=== PATIENT | male | born 1955 | race Caucasian/White ===

== ENCOUNTER 2020-04-24 10:42 | Inpatient (IN) | payer OTHER, SELFPAY ==
[2020-04-24] VITALS (24 sets, daily range): BP systolic 85–133; BP diastolic 41–75; PULSE 77–107; RESP 10–25; TEMP 36.6–37.1; O2SAT 93–100; BMI 25.5; BMI 23.6
--- NOTE | 2020-04-24 11:00 | EKG12_ITS ---
Test Reason : GENERAL ILLNESS Blood Pressure : / mmHG Vent. Rate : 091 BPM Atrial Rate : 091 BPM P-R Int : 132 ms QRS Dur : 086 ms QT Int : 432 ms P-R-T Axes : 035 019 084 degrees QTc Int : 531 ms Sinus rhythm with Premature atrial complexes Possible Inferior infarct , age undetermined Prolonged QT Abnormal ECG Confirmed by ELIZABETH JEFFERSON, RACHEL ([id number]), purchase request editor CHANEL REID ([id number]) on 04/26/2020 10:31:25 AM Referred By: MICHEAL Confirmed By:RACHEL JOHNSON MD
--- NOTE | 2020-04-24 11:01 | CT_ITS ---
STUDY: CT ABDOMEN AND PELVIS WITH CONTRAST REASON FOR EXAM: Male, 64 years old. Vomiting/ RADIATION DOSAGE (If Supplied By Facility): CTDIvol = ( 15.46 ) mGy, DLP = ( 1148.90 ) mGycm TECHNIQUE: Transaxial images were obtained from the dome of the diaphragm to the symphysis pubis without oral contrast. IV 100mL Isovue-370 was administered. Sagittal and coronal images were reconstructed. Individualized dose optimization techniques were used for this CT. COMPARISON: None. FINDINGS: The visualized lung bases are unremarkable. There are coronary calcifications. Normal liver. Normal gallbladder and extrahepatic biliary system. Normal spleen. Normal pancreas. Normal bilateral adrenal glands. Normal right kidney. Normal left kidney. The stomach is full of food contents. Normal small intestine. There is moderate stool in the colon from the cecum to the rectum. The appendix is visualized and appears normal. There is diffuse atherosclerotic calcification of the abdominal aorta, without a demonstrated aneurysm. Normal inferior vena cava. Normal retroperitoneum. Normal urinary bladder. Normal visualized prostate gland. There is a small left-sided fatty one hernia. There are diffuse degenerative changes of the visualized lumbar spine. CT/Abdomen/Pelvis WITH Contrast IMPRESSION: Fluid-filled fluid-filled appearance of the stomach. Mild to moderate constipation. No visualized obstruction. No appendicitis. [id number] atherosclerotic disease of the aorta. Fairly dense coronary calcification. Electronically Signed: aNdege Tam MD at 12:36 EST Tel , Service support ,
--- NOTE | 2020-04-24 11:01 | RAD_ITS ---
STUDY: X-RAY - RIGHT SHOULDER REASON FOR EXAM: Male, 64 years old. Injury/Pain TECHNIQUE: 2 view(s) of the shoulder. COMPARISON: None. FINDINGS: Normal glenohumeral articulation. There is degenerative arthrosis of the acromioclavicular joint without inferior osseous spur formation. Normal acromion. There is an acute impacted fracture of the right proximal humerus. The soft tissue structures are unremarkable. Normal visualized pulmonary apex. RAD/Shoulder min 2 Views IMPRESSION: Acute displaced partially visualized fracture of the right proximal humerus. Recommend consideration for dedicated right humerus study. Electronically Signed: Nadege Tam MD at 11:55 EST Tel , Service support ,
--- NOTE | 2020-04-24 11:01 | CT_ITS ---
STUDY: CT BRAIN WITHOUT CONTRAST REASON FOR EXAM: Male, 64 years old. Injury/Pain RADIATION DOSAGE (If Supplied By Facility): CTDIvol = ( 44.99 ) mGy, DLP = ( 863.60 ) mGycm TECHNIQUE: Transaxial CT imaging of the brain was performed without administration of intravenous contrast material. Individualized dose optimization techniques were used for this CT. COMPARISON: No relevant priors. FINDINGS: Normal soft tissue structures. Normal calvarium. There is mild cerebral atrophy with widening of the extra-axial spaces and ventricular dilatation. There are areas of decreased attenuation within the white matter tracts of the supratentorial brain, consistent with microvascular disease changes. Normal basal ganglia and thalami. Normal brainstem. There is mild cerebellar atrophy. There is no intracranial hemorrhage. There are no findings of an acute ischemic infarction. Normal visualized paranasal sinuses. CT/Brain/Head without Contrast IMPRESSION: Mild atrophy no visualized acute hemorrhage infarct or edema. Electronically Signed: Nadege Tam MD at 12:14 EST Tel , Service support ,
[2020-04-24] MEDS: 0.9% Normal Saline 1,000 ML 999 ML IV ×2 (11:04→14:18)
[2020-04-24 11:14] LABS: Absolute Lymphocyte Count 1.12 X10^3/uL (0.83-4.51); Absolute Neutrophil Count 12.8 X10^3/uL (2.0-7.7); Basophil# 0.02 X10^3/uL; Basophil% 0.1 % (0-1); Eosinophil# 0.02 X10^3/uL; Eosinophils% 0.1 % (0-5); Hemoglobin 8.3 g/dL (13.0-16.5); Lymphocyte # 1.12 X10^3/ul (4.0); Lymphocyte % 7.5 % (19-41); Mean Corp Hgb Conc 31.9 g/dL (32-36); Mean Corpuscular Hgb 28.8 pg (27.0-32.0); Mean Corpuscular Volume 90.3 fL (80-94); Mean Platelet Vol. 10.9 fl (6.2-12.0); Monocyte# 0.64 X10^3/uL; Monocyte% 4.3 % (0-10); NRBC Flagged by Analyzer 0 % (0-5); Neutrophil # 12.82 X10^3/uL (2.7-7.7); Neutrophil % 86.1 % (47-70); Platelet Count 351 K/mm3 (150-450); RBC Distribution Width CV 13.2 % (11.6-14.6); RBC Distribution Width SD 43.1 fl (35.1-43.9); Red Blood Count 2.88 M/mm3 (4.6-6.2); White Blood Count 14.9 K/mm3 (4.4-11.0)
[2020-04-24 11:21] LABS: International Normalized Ratio 1.1; Partial Thromboplast Time 25.2 Seconds (24.1-36.2); Prothrombin Time (Protime)PT. 13.8 SECONDS (11.7-14.9)
[2020-04-24 11:28] LABS: ALB/GLOB Ratio 0.6 RATIO (0.9-2.4); AST(SGOT) 13 U/L (15-37); Alanine Aminotransfer ALT/SGPT 17 U/L (16-61); Albumin, Serum 1.9 g/dL (3.2-5.0); Alkaline Phosphatase 79 U/L (45-117); Anion Gap 9 (5-15); BUN 43 mg/dL (7-18); BUN/Creat Ratio 38.7 RATIO (10-20); CPK Total, Creatine Kinase 32 U/L (39-308); Calcium,Total 7.3 mg/dL (8.5-10.1); Chloride 89 mmol/L (98-107); Creatinine, Serum 1.11 mg/dL (0.70-1.30); EST Glomerular Filtration Rate 71 mL/min (>60); Est Glom Filt Rate - Afr Amer 86 mL/min (>60); Estimated Creatinine Clearance 66.76 ml/min; Globulin 3.2 g/dL (2.2-4.2); Glucose 524 mg/dL (74-106); Potassium 3.4 mmol/L (3.5-5.1); Protein, Total 5.1 g/dL (6.4-8.2); Sodium Level 131 mmol/L (136-145)
[2020-04-24 11:36] LABS: Lactic Acid 3.7 mmol/L (0.4-1.9)
--- NOTE | 2020-04-24 11:37 | RAD_ITS ---
STUDY: X-RAY CHEST REASON FOR EXAM: Male, 64 years old. Syncope TECHNIQUE: Single AP portable view of the chest. COMPARISON: None. FINDINGS: The lungs are clear and expanded. There is no demonstrated pleural abnormality. Normal size heart. Normal mediastinum and deepak. Normal visualized pulmonary arteries. There is atherosclerotic calcification of the aortic arch with tortuosity. There are diffuse degenerative changes of the visualized thoracic spine. Normal visualized ribs, clavicles, and shoulders. There is no demonstrated abnormality of the visualized soft tissue structures of the upper abdomen. RAD/Chest 1 View (Portable) IMPRESSION: Degenerative changes, as described above. No demonstrated acute cardiopulmonary process. Electronically Signed: Nadege Tam MD at 12:15 EST Tel , Service support ,
--- NOTE | 2020-04-24 12:29 | ED.VIS.GEN ---
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 Patient had nausea and vomiting and been sick for the past few weeks. He has had very little oral intake. On Saturday, 2 days ago patient fell. He states that his ankle gave out but son is suspicious that he might have a syncopal episode. Says been try to get him to drink Pedialyte which he is done a little bit of. Patient another fall yesterday however the son had gotten him a walker and he was walking around actually seem to be doing better. Today patient had multiple episodes of syncope. He seemed to fall and injure his right arm as well and has a lot of bruising. EMS was called because of the patient's syncope and per EMS his initial systolic blood pressure was 100 however on repeat when they got up to the cot he was 60/40. Patient was given a liter of fluids prior to arrival. Patient does live with his 2 sons. Patient currently denies any complaints or any pain. Denies any black or bloody stools. States has been having normal bowel movements. Denies any black or blood in his vomit. He is not on any blood thinners. Past Medical History - Allergies and Home Meds Allergies/Adverse Reactions: Allergies No Known Allergies Allergy (Verified 04/24/20 10:44) Past Medical History: - - Hypertension, hyperlipidemia, diabetes mellitus Surgical History: no surgical history Lives: With Family Smoking Status: Current every day smoker - Family History Maternal Family History: Reports: Heart Disease Paternal Family History: Reports: No pertinent history Review of Systems General: Reports: Malaise, - - Syncope. Denies: Chills, Fever, Sweats Eyes: Denies: Visual changes - bilaterally, Diplopia ENT: Denies: Rhinorrhea, Sore throat Cardiovascular: Denies: Chest pain, Palpitations Respiratory: Denies: Dyspnea, Cough, Dyspnea on exertion Gastrointestinal: Reports: Nausea, Vomiting. Denies: Abdominal pain, Diarrhea, Melena, Hematochezia Genitourinary: Denies: Dysuria, Hematuria, Frequency Musculoskeletal: Denies: Back pain, Extremity Pain Skin: Denies: Rash, Wounds Neurological: Reports: Weakness - Generalized. Denies: Headache, Numbness Physical Exam Vital Signs/Narrative: Vital Signs Temp Pulse Resp BP Pulse Ox 04/24/20 12:00 97.9 F 93 18 94/46 L 97 04/24/20 11:59 97.9 F 94 20 H 94/50 L 97 04/24/20 11:58 93 18 94/50 L 100 04/24/20 11:00 98.1 F 92 16 98/41 L 95 04/24/20 10:57 98.0 F 94 10 L 85/47 L 100 04/24/20 10:44 98.0 F 94 16 85/47 L 98 Inital Vital Signs reviewed: Yes General: Well nourished, Well developed, No Acute Distress Head: Normocephalic, Atraumatic Eyes: Perrl, EOMI ENT: No rhinorrhea, Dry mucous membranes Neck: Supple, Nontender, No JVD Cardiovascular: Regular rate, Regular rhythm, No murmurs Respiratory: No distress, CTA bilaterally, Chest nontender Abdomen: Soft, Nontender, Nondistended, Normal bowel sounds. Negative for: Guarding, Rebound tenderness Rectal: Deferred, Guaiac negative Back: Nontender, Normal Inspection Extremities: No edema, Tenderness - Right upper arm Skin: Normal color, No rash, Trauma - Ecchymosis of the right upper arm/shoulder area Neurological: Alert, Oriented x3, Cranial nerves II-XII grossly intact, Normal Strength, Normal Sensation Psychological: Normal affect, Normal Mood Diagnostic/Tx/Re-eval Chest X-Ray - ED: 1 View, Read by ED Physician, Read by Radiologist, No Acute Disease Clinical Impression(s) from Imaging Studies Abdomen/Pelvis CT 04/24/20 11:01 IMPRESSION: Fluid-filled fluid-filled appearance of the stomach. Mild to moderate constipation. No visualized obstruction. No appendicitis. [id number] atherosclerotic disease of the aorta. Fairly dense coronary calcification. Electronically Signed: Nadege Tam MD at 12:36 EST Tel , Service support , Brain CT 04/24/20 11:01 IMPRESSION: Mild atrophy no visualized acute hemorrhage infarct or edema. Electronically Signed: Nadege Tam MD at 12:14 EST Tel , Service support , Shoulder X-Ray 04/24/20 11:01 IMPRESSION: Acute displaced partially visualized fracture of the right proximal humerus. Recommend consideration for dedicated right humerus study. Electronically Signed: Nadege Tam MD at 11:55 EST Tel , Service support , Chest X-Ray 04/24/20 11:37 IMPRESSION: Degenerative changes, as described above. No demonstrated acute cardiopulmonary process. Electronically Signed: Nadege Tam MD at 12:15 EST Tel , Service support , Laboratory Data 04/24/20 04/24/20 04/24/20 10:50 10:50 10:50 WBC 14.9 H RBC 2.88 L Hgb 8.3 L Hct 26.0 L MCV 90.3 MCH 28.8 MCHC 31.9 L RDW Std Deviation 43.1 RDW Coeff of Concetta 13.2 Plt Count 351 MPV 10.9 Immature Gran % (Auto) 1.900 H Neut % (Auto) 86.1 H Lymph % (Auto) 7.5 L Randall % (Auto) 4.3 Eos % (Auto) 0.1 Baso % (Auto) 0.1 Absolute Neuts (auto) 12.8 H Absolute Lymphs (auto) 1.12 Nucleated RBC % 0 PT 13.8 INR 1.1 APTT 25.2 Sodium 131 L Potassium 3.4 L Chloride 89 L Carbon Dioxide 33.0 H Anion Gap 9 BUN 43 H Creatinine 1.11 Estim Creat Clear Calc 66.76 Est GFR (MDRD) Af Amer 86 Est GFR (MDRD) Non-Af 71 BUN/Creatinine Ratio 38.7 H Glucose 524 H* Lactic Acid Calcium 7.3 L Total Bilirubin 0.30 AST 13 L ALT 17 Alkaline Phosphatase 79 Total Creatine Kinase 32 L Total Protein 5.1 L Albumin 1.9 L Globulin 3.2 Albumin/Globulin Ratio 0.6 L Urine Color Urine Clarity Urine pH Ur Specific [place] Urine Protein Urine Glucose (UA) Urine Ketones Urine Occult Blood Urine Nitrite Urine Bilirubin Urine Urobilinogen Ur Leukocyte Esterase Urine RBC Urine WBC Ur Squamous Epith Cells Urine Bacteria Urine Mucus 04/24/20 04/24/20 10:50 13:00 WBC RBC Hgb Hct MCV MCH MCHC RDW Std Deviation RDW Coeff of [place] Plt Count MPV Immature Gran % (Auto) Neut % (Auto) Lymph % (Auto) Randall % (Auto) Eos % (Auto) Baso % (Auto) Absolute Neuts (auto) Absolute Lymphs (auto) Nucleated RBC % PT INR APTT Sodium Potassium Chloride Carbon Dioxide Anion Gap BUN Creatinine Estim Creat Clear Calc Est GFR (MDRD) Af Amer Est GFR (MDRD) Non-Af BUN/Creatinine Ratio Glucose Lactic Acid 3.7 H* Calcium Total Bilirubin AST ALT Alkaline Phosphatase Total Creatine Kinase Total Protein Albumin Globulin Albumin/Globulin Ratio Urine Color Yellow Urine Clarity Clear Urine pH 5.0 Ur Specific [place] 1.005 Urine Protein Negative Urine Glucose (UA) 1000 H Urine Ketones 5 H Urine Occult Blood 10 H Urine Nitrite Negative Urine Bilirubin Negative Urine Urobilinogen Normal Ur Leukocyte Esterase Negative Urine RBC 0-5 SEEN Urine WBC 0 SEEN Ur Squamous Epith Cells 0-5 SEEN Urine Bacteria 0 SEEN Urine Mucus 0 SEEN - Rhythm Strip Rhythm Strip: Sinus Rhythm Rate: 91 Ectopy: None - EKG Initial EKG Interpretation: Sinus Rhythm, - - Normal sinus rhythm at a rate of [address] segments QTC prolonged at 531 Nonspecific T wave inversion in lead III Prior: No Prior - Medical Decision Making Patient evaluated for hypotension, syncopal episodes and weeks of being sick with nausea and vomiting. Patient appears significantly dehydrated and slightly pale on exam. His blood pressure is fluid responsive. Patient is given 1 L of normal saline in route per EMS and then a second liter immediately in the emergency room. There is no mention of any fevers or any other infectious symptoms. At this time I suspect his hypotension is related to his acute dehydration, however cardiac and infectious work-up is performed.CBC is remarkable for leukocytosis of 14.9. His hemoglobin is 8.3. Normal platelets. Sodium is 131 and potassium is 3.4. His CO2 is 33. Patient has a normal anion gap. His creatinine is normal at 1.11. Patient has a elevated glucose of 524. His total CK is normal at 32. His lactate is elevated at 3.7. His urinalysis does not show any signs of infection but does show 5 ketones and 1,000 glucose. Chest x-ray does not show any acute process. CT of the brain obtained given his weakness and multiple falls. This did not show any acute process. X-ray of the right shoulder shows acutely displaced right proximal humerus. Stool occult is sent which is negative for blood. That cause of anemia and leukocytosis is not clear. I am no obvious source of acute infection. I did cover empirically with a dose of Zosyn however again, I suspect his abnormalities are more metabolic. Patient CT the abdomen pelvis obtained which does not show a any acute process to explain his presentation. Patient does have mild to moderate constipation but no signs of obstruction. Patient is given a third L of fluid in the ER as well as a 30 cc/kg fluid bolus. At this time I think patient requires more fluids and does not need pressors. Patient admitted to the ICU for further treatment and monitoring. Patient and family agreeable with the plan. I did discuss jacey the case with the hospitalist as well as orthopedics. Orthopedics request a sling for his arm and will see him in the unit. At this time there is no acute surgical intervention required. Patient is hyperglycemic he has a normal anion gap. I have a lower suspicion for DKA and I would suspect him to have a higher glucose for HHS. - Critical Care Time Critical care time (excluding procedures): 30-74 minutes - 45 minutes for threatening hypotension requiring frequent evaluation and multiple boluses of fluid. 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
[2020-04-24 13:04] LABS: Bacteria 0 SEEN /hpf (None Seen); Mucous, Urine 0 SEEN /hpf (<or=2+); White Blood Cells 0 SEEN /hpf (0-5)
--- NOTE | 2020-04-24 13:20 | HP.PCM_ITS ---
History of Present Illness Date of Admission: 04/24/20 Chief Complaint: weakness, syncope, mechanical fall The patient is a 64 year old M with a past medical history as outlined which includes type 2 diabetes mellitus, hypertension and hyperlipidemia. He was admitted through the ED on 04/24/2020 with a complaint of syncope and mechanical falls. Patient states has not been doing well for the past few days. Has not been eating or drinking well and has been having some nausea and vomiting. He is also not been taking his diabetes medications because he is not been feeling well. Son states he fell a few days ago and landed on his right and has been complaining of right arm pain since then. According to the son who was present, patient passed out 3 times on the day of admission. Patient denied any fever, chills, palpitations or dizziness, any urinary symptoms, any abdominal pain but admitted to nausea and vomiting but no diarrhea. Review of stems otherwise negative. Son says his father has actually been sick for longer and does not take care of himself well and does not listen to anybody so has been refusing to come in to get health care. In the ED, patient was hypotensive initially with blood pressure of 85/47. Patient was 98 and pulse rate was 94 with respiratory rate of 20. He was saturating 97% on 2 L of oxygen. Chemistry showed sodium of 131 with potassium of 3.4 and bicarb of 33. Creatinine was 1.11. Glucose was 524 and lactic acid was 3.7. Bicarb was 33. CBC showed hemoglobin of 8.3 with WBC of 14.9 and platelets of 351. It appears patient had also complained of dark stools. T of the abdomen and pelvis showed fluid-filled appearance of the stomach with mild to moderate constipation but no visualized obstruction and no appendicitis with mild to moderate atherosclerotic disease of the aorta and fairly dense coronary calcification. CT of the brain showed mild atrophy and no visualized acute hemorrhage, infarct or edema. Chest x-ray showed no acute cardiopulmonary process and shoulder x-ray showed acute displaced partially visualized fracture of the right proximal humerus. No evidence of UTI. Patient has been admitted to be managed for shock which responded to IV fluids and is likely hypovolemic from dehydration and probably septic as well. Please also be managed for syncope and debility due to mechanical falls as well as right proximal humeral fracture and hypoglycemia due to noncompliance with this medication. Past Medical History Past Medical History (Chronic Problems): Chronic Problems Type 2 diabetes mellitus (Chronic) Hypertension (Chronic) Allergies No Known Allergies Allergy (Verified 04/24/20 10:44) Home Medications: Ambulatory Orders Medication Instructions Recorded Benazepril HCl 10 mg PO DAILY 04/24/20 Glimepiride [Amaryl] 2 mg PO DAILY 04/24/20 Metformin HCl [Glucophage Xr] 500 mg PO BID 04/24/20 Surgical History: no surgical history Psychiatric History: No pertinent psych hx Lives: With Family Smoking Status: Heavy Smoker (>10/day) - smokes 3 packs of cigarettes daily Tobacco Use: Cigarettes Alcohol: None Drugs: None - *Family History Maternal History Items: Heart Disease Paternal History Items: No pertinent history Review of Systems Constitutional: Reports: Anorexia, Malaise, Weakness, Fatigue. Denies: Chills, Fever, Night Sweats Eyes: Denies: Blurred vision HEENT: Denies: Head Aches, Sinus Congestion, Sinus Drainage Cardiovascular: Reports: Syncope. Denies: Chest Pain, Heaviness, Light Headedness, Orthopnea, Palpitations, Paroxysmal Noc. Dyspnea Respiratory: Denies: Cough, Shortness of Breath, Shortness of breath at rest, Shortness of breath upon exertion, Sputum production Gastrointestinal: Denies: Abdominal Pain, Nausea, Vomiting Genitourinary: Denies: Dysuria Musculoskeletal: Denies: Joint Pain, Joint Tenderness Skin: Denies: Rash, Wounds Neurological: Denies: Numbness, Tingling, Focal weakness Psychiatric: Denies: Anxiety, Depression, Homicidal Ideations, Suicidal Ideations Hematologic/ Lymphatic: Denies: Easy Bruising, Easy Bleeding VTE Information - Inpt Only VTE Present on Admission: No VTE Pharm Prophylaxis ordered?: No Reason prophylaxis not ordered:: Medical Contraindication - anemia and melena stools Patient Problems: Active and Suspected Problems Hypotension (Acute) Lactic acidosis (Acute) Syncope and collapse (Acute) Closed fracture of right proximal humerus (Acute) Anemia (Acute) Hyperglycemia (Acute) - Physical Exam Vitals/I&O's: Vital Signs Temp Pulse Resp BP Pulse Ox 97.9 F 94 20 H 99/59 L 100 04/24/20 12:00 04/24/20 12:29 04/24/20 12:29 04/24/20 12:29 02/28/21 12:29 Oxygen Flow Rate (L/min) 2 Oxygen Delivery Method Nasal Cannula Weight: 167 lb 15.876 oz Body Mass Index (BMI) 25.5 General: Alert, Cooperative, No apparent distress, Lethargic HEENT: Atraumatic, PERRLA, EOMI, Normocephalic Oral: Dry Mucosa Neck: Supple, No JVD, Negative Carotid Bruits Lungs: Clear to auscultation, Normal air movement, No rhonchi, No wheeze, No rales Cardiovascular: Regular rate, Regular Rhythm, Normal S1, Normal S2, No murmurs Abdomen: Bowel Sounds Present, Soft, Non Tender, Non-Distended, No Hepato- splenomegaly Extremities: No clubbing, No cyanosis, No edema, Capillary Refill Less than 3 Seconds Skin: No rashes, No breakdown Musculoskeletal: No Tenderness to Palpation of Joints or Extremities Lymphatic: No Cervical, Supraclavicular, or Inguinal Adenopathy Neurological: Cranial nerves II-XII grossly intact, Neuro grossly intact, Motor Exam 5/5 strength throughout Psych/Mental Status: Normal Affect, Appropriate, Alert and oriented to time, place, person, mood and affect Laboratory Results 04/24/20 10:50: WBC 14.9 H, RBC 2.88 L, Hgb 8.3 L, Hct 26.0 L, MCV 90.3, MCH 28.8, MCHC 31.9 L, RDW Std Deviation 43.1, RDW Coeff of [place] 13.2, Plt Count 351, MPV 10.9, Immature Gran % (Auto) 1.900 H, Neut % (Auto) 86.1 H, Lymph % (Auto) 7.5 L, [place] % (Auto) 4.3, Eos % (Auto) 0.1, Baso % (Auto) 0.1, Absolute Neuts (auto) 12.8 H, Absolute Lymphs (auto) 1.12, Nucleated RBC % 0 04/24/20 10:50: PT 13.8, INR 1.1, APTT 25.2 04/24/20 10:50: Sodium 131 L, Potassium 3.4 L, Chloride 89 L, Carbon Dioxide 33.0 H, Anion Gap 9, BUN 43 H, Creatinine 1.11, Estim Creat Clear Calc 66.76, Est GFR (MDRD) Af Amer 86, Est GFR (MDRD) Non-Af 71, BUN/Creatinine Ratio 38.7 H , Glucose 524 H*, Calcium 7.3 L, Total Bilirubin 0.30, AST 13 L, ALT 17, Alkaline Phosphatase 79, Total Creatine Kinase 32 L, Total Protein 5.1 L, Albumin 1.9 L, Globulin 3.2, Albumin/Globulin Ratio 0.6 L 04/24/20 10:50: Lactic Acid 3.7 H* 04/24/20 13:00: Urine Color Pending, Urine Clarity Pending, Urine pH Pending, Ur Specific [place] Pending, Urine Protein Pending, Urine Glucose (UA) Pending, Urine Ketones Pending, Urine Occult Blood Pending, Urine Nitrite Pending, Urine Bilirubin Pending, Urine Urobilinogen Pending, Ur Leukocyte Esterase Pending, Urine RBC Pending, Urine WBC Pending, Ur Squamous Epith Cells Pending, Urine Bacteria Pending, Urine Mucus Pending Diagnostic Data Abdomen/Pelvis CT 04/24/20 11:01 IMPRESSION: Fluid-filled fluid-filled appearance of the stomach. Mild to moderate constipation. No visualized obstruction. No appendicitis. [id number] atherosclerotic disease of the aorta. Fairly dense coronary calcification. Electronically Signed: Nadege Tam MD at 12:36 EST Tel , Service support , Brain CT 04/24/20 11:01 IMPRESSION: Mild atrophy no visualized acute hemorrhage infarct or edema. Electronically Signed: Nadege Tam MD at 12:14 EST Tel , Service support , Shoulder X-Ray 04/24/20 11:01 IMPRESSION: Acute displaced partially visualized fracture of the right proximal humerus. Recommend consideration for dedicated right humerus study. Electronically Signed: Nadege Tam MD at 11:55 EST Tel , Service support , Chest X-Ray 04/24/20 11:37 IMPRESSION: Degenerative changes, as described above. No demonstrated acute cardiopulmonary process. Electronically Signed: Nadege Tam MD at 12:15 EST Tel , Service support , Current Medications Piperacillin Sod/Tazobactam (Sod 3.375 gm/ Sodium Chloride) 50 mls @ 100 mls/hr IV X1 ONE Stop: 04/24/20 13:27 Assessment/Plan All Active Problems Hypotension (Acute) Lactic acidosis (Acute) Syncope and collapse (Acute) Closed fracture of right proximal humerus (Acute) Anemia (Acute) Hyperglycemia (Acute) 64 y/o admitted with a complaint of syncope, weakness and pain in RUE #Shock, likely hypovolemic * Patient's blood pressure was not in the 80s systolic but this responded to aggressive fluid hydration. Blood pressure came up to the 90s systolic. * Patient is very dry he has not been eating or drinking well and has been vomiting. * Continue hydrating with IV fluid at 150 cc/h. * Maintain MAP more than 65%. Start vasopressors if MAP less than 65%. * #Hyperglycemia * Patient does not have an elevated anion gap with bicarb of 83. Anion gap is 9. * Patient could possibly have HHS considering his elevated sugar 524. No previous A1c in the records. * Will check A1c. * Hydrate aggressively with IV fluids. Check serum osmolality. * Insulin drip ordered, but when patient got to the floor, blood sugar was down ot the 200s. A1C came back at >9, so patient started on insulin 10IU daily. * Accuchecks ACHS. High dose sliding scale. * * #Poorly controlled type 2 diabetes mellitus: As above. Hold Metformin and glipizide. Management as above. #Lactic acidosis: Likely due to dehydration and shock. Will trend.. Improved with IV fluid. #Leucocytosis * Patient has WBC of 14.9. * There is no clear focus of infection. * Urinalysis is negative and CT of the abdomen and pelvis was also negative for any focus of infection. * And covered empirically with IV Zosyn in the ED. * We will continue IV Zosyn for now. Get blood cultures. * #Right proximal humeral fracture * Due to mechanical fall. Shoulder x-ray showed the right proximal humeral fracture. * Will consult orthopedic surgery. Management is likely to be conservative. * PT OT consult. Fall precautions. * #Syncope * likely due to hypotension. * PT OT on board. Fall precautions. Check orthostatics. ] #Hypertension: Hold lisinopril on account of hypotension #Anemia: * hb is 8.3. patient apparently told ED doctor he was having dark stools. * Will check iron panel. * Stool for occult blood check. * If is positive, saw general surgery. * #. Hyperlipidemia: Continue statin #Extensive nicotine dependence: Smokes 3 packs daily. Nicotine patch 21 mg daily. Counseled to quit. DVT prophylaxis: SCDs Code status: full code * Patient counseled extensively about different types of CODE STATUS including full code, DNR CCA and DNR CCA. Patient elects to be full code. * Total [id number] time 17 minutes. Inpatient E&M: 25093 Init Hosp L3 Procedures: 86658 Advncd Care Plan 30 Min
[2020-04-24 13:23] LABS: Color, Urine Yellow (Yellow); Glucose, Dipstick 1000 mg/dl (Normal); Ketone-Dipstick 5 mg/dl (Negative); Leukocyte Esterase-Dipstick Negative /ul (Negative); Nitrite-Dipstick Negative (Negative); Occult Blood-Urine 10 /ul (Negative); Protein-Dipstick Negative (Negative); Specific Gravity, Urine 1.005 (1.002-1.030); Urine Bilirubin Dipstick Negative (Negative); Urine Clarity Clear (Clear); Urine Urobilinogen Normal (Normal)
[2020-04-24 13:54] LABS: Red Blood Cells-Urine 0-5 SEEN /hpf (0-5); Squamous Epithelial Cells - UA 0-5 SEEN /hpf (0-5)
--- NOTE | 2020-04-24 14:15 | ED.RN ---
PT LAYING ON LEFT ARM. PT PLACED ON BACK, REPEAT BP 92/53. DR. LOPEZ INFORMED OF LOW BP POST FLUID ADMINISTRATION. PER DR. LOPEZ, PT IS DEHYDRATED AND NO SOURCE OF INFECTION NOTED. 3RD LITER BOLUS ORDERED FOR PT AND INITIATED BY THIS RN. ICU NOTIFIED.
[2020-04-24 15:08] LABS: Reflex Lactate? Y
[2020-04-24 15:14] LABS: Magnesium 1.9 mg/dL (1.6-2.6)
[2020-04-24 15:28] LABS: Ferritin 398 ng/mL (26-388); Iron 62 ug/dL (65-175); Iron Binding Capacity,Total 146 ug/dL (250-450); PERCENT IRON SATURATION 42.5 % (15.0-55.0)
[2020-04-24 15:37] LABS: Hemoglobin A1c 9.7 % (3.8-5.6)
[2020-04-24 15:52] LABS: Osmolality, Serum 310 mOsm/KG (280-301)
[2020-04-24 16:15] LABS: Bedside Glucose 263 mg/dL (70-110)
[2020-04-24] MEDS: Potassium Chloride 40 MEQ in 0.9% Normal Saline 1,000 ML 200 MEQ IV (16:36)
[2020-04-24] MEDS: Insulin Lispro 100 UNIT/ML INSULN.PEN SC ×2 (17:52→21:20)
[2020-04-24] MEDS: 0.9% Saline Lock 10 ML Syringe IV (21:14)
[2020-04-24 21:31] LABS: Bedside Glucose 170 mg/dL (70-110)
[2020-04-24] MEDS: Potassium Chloride 40 MEQ in 0.9% Normal Saline 1,000 ML 150 MEQ IV (22:47)
[2020-04-25] VITALS (24 sets, daily range): BP systolic 96–142; BP diastolic 31–96; PULSE 84–98; RESP 12–26; TEMP 36.6–37.3; O2SAT 94–100
[2020-04-25] MEDS: 0.9% Saline Lock 10 ML Syringe IV (00:39)
[2020-04-25 03:35] LABS: Basophil# 0.02 X10^3/uL; Basophil% 0.2 % (0-1); Eosinophil# 0.12 X10^3/uL; Hematocrit 21.3 % (40-54); Hemoglobin 6.9 g/dL (13.0-16.5); Lymphocyte % 19.4 % (19-41); Mean Corp Hgb Conc 32.4 g/dL (32-36); Mean Corpuscular Hgb 28.6 pg (27.0-32.0); Mean Corpuscular Volume 88.4 fL (80-94); Mean Platelet Vol. 10.4 fl (6.2-12.0); Monocyte# 0.71 X10^3/uL; Monocyte% 5.7 % (0-10); NRBC Flagged by Analyzer 0 % (0-5); Neutrophil # 8.99 X10^3/uL (2.7-7.7); Neutrophil % 72.6 % (47-70); Platelet Count 322 K/mm3 (150-450); RBC Distribution Width CV 13.3 % (11.6-14.6); RBC Distribution Width SD 42.7 fl (35.1-43.9); Red Blood Count 2.41 M/mm3 (4.6-6.2); White Blood Count 12.4 K/mm3 (4.4-11.0)
[2020-04-25 03:48] LABS: Anion Gap 7 (5-15); BUN 27 mg/dL (7-18); BUN/Creat Ratio 56.5 RATIO (10-20); Calcium,Total 7.1 mg/dL (8.5-10.1); Chloride 108 mmol/L (98-107); Creatinine, Serum 0.48 mg/dL (0.70-1.30); EST Glomerular Filtration Rate 188 mL/min (>60); Est Glom Filt Rate - Afr Amer 228 mL/min (>60); Estimated Creatinine Clearance 169.95 ml/min; Glucose 128 mg/dL (74-106); Potassium 3.2 mmol/L (3.5-5.1); Sodium Level 143 mmol/L (136-145)
[2020-04-25] MEDS: Potassium Chloride 40 MEQ in 0.9% Normal Saline 1,000 ML 150 MEQ IV (05:20)
--- NOTE | 2020-04-25 05:55 | ECHOCS_ITS ---
Reason For Study: HTN Procedure This was a 2D Doppler, Color Flow transthoracic echocardiogram. The study was technically difficult. Patient scanned slightly elevated and supine due to right shoulder fracture. Contrast injection performed. Exam performed portable in ICU/CCU. Left Ventricle Normal LV size. Left ventricular systolic function is normal. The estimated ejection fraction is 65 %. Stage 1 diastolic dysfunction. No regional wall motion abnormalities noted. Right Ventricle Normal RV size. Normal systolic function. Atria Normal left atrium. Normal right atrium. Mitral Valve Normal mitral valve. Tricuspid Valve The tricuspid valve is not well visualized. Aortic Valve The aortic valve is not well visualized. Pulmonic Valve Normal pulmonic valve. Great Vessels Normal aortic root. The pulmonary artery is normal size. Normal inferior vena cava. Pericardium/Pleural No pericardial effusion. Medication Diluted definity 3ml given slow IV push to enhance endocardial definition. MMode/2D Measurements & Calculations LVIDd: 4.5 cm IVSd: 1.3 cm LA dimension: 3.3 cm LVIDs: 3.2 cm LVPWd: 1.0 cm FS: 29.7 % LAV(MOD-bp): 51.5 ml LA A4 area: 18.8 cm2 RA A4 area: 19.9 cm2 LAV(MOD-bp) Indexed: 26.0 ml/m2 LAV(MOD-sp2): 51.4 ml LAV(MOD-sp4): 49.0 ml Time Measurements MV dec time: 0.26 sec Doppler Measurements & Calculations MV E max jax: 61.2 cm/sec Lat Peak E' Jax: 9.0 cm/sec Med Peak E' Jax: 5.7 cm/sec MV A max jax: 102.5 cm/sec E/E' lat: 6.8 E/E' med: 10.8 MV E/A: 0.60 MV V2 max: 127.1 cm/sec MV P1/2t max jax: 105.9 cm/sec Ao V2 max: 126.2 cm/sec MV max P.5 mmHg MV P1/2t: 76.3 msec Ao max P.4 mmHg MV V2 mean: 72.5 cm/sec MV dec slope: 406.5 cm/sec2 MV mean P.4 mmHg MV V2 VTI: 25.7 cm MVA(P1/2t): 2.9 cm2 LV V1 max: 97.7 cm/sec PA V2 max: 120.4 cm/sec LV V1 max P.8 mmHg Interpretation Summary Normal LV size. Left ventricular systolic function is normal. The estimated ejection fraction is 65 %. Stage 1 diastolic dysfunction. Contrast injection was performed. Ordering Physician: Jennifer Lechuga Referring Physician: Justus Foreman Performed By: Vadim Gregory RCS
--- NOTE | 2020-04-25 07:23 | PCM.CON.CC ---
Problem List (1) Hypotension Status: Acute Qualifiers: Hypotension type: orthostatic hypotension Qualified Code(s): I95.1 - Orthostatic hypotension (2) Dehydration Status: Acute (3) Lactic acidosis Status: Acute (4) Syncope and collapse Status: Acute (5) Closed fracture of right proximal humerus Status: Acute (6) Anemia Status: Acute (7) Hyperglycemia Status: Acute Reason for Consult Date of Consultation: 04/25/20 Reason for Consultation: Possible sepsis History of Present Illness: The patient is a 64 year old M, with past medical history listed below, who presented to [facility] on 10/22/2020 secondary to weakness and syncope. Patient reportedly has had nausea and vomiting for the past few weeks. Patient with very little oral intake. Patient reports that he fell approximately 2 weeks ago and injured his right arm. Patient reportedly fell again 2 days prior to presentation. Patient stated that his ankle gave out, but the son was reportedly concerned about a syncopal episode. Patient son had reportedly gotten him on a walker and thought that this was improving his ambulation. Patient has had multiple episodes of syncope with associated bruising. Upon EMS arrival, patient systolic blood pressure was 100, but on repeat he was noted to be 60/40. Patient was given a liter of IV fluids and transported to the ER for further evaluation. Patient had not reported any melena, hematochezia or hematemesis. Patient is not on any blood thinners at baseline. Patient does admit that he tends to avoid medical attention if possible. In the ER, patient was noted to have blood pressures of 80s over 40s and afebrile. Patient saturating well on room air. ER physician had noted dry mucous membranes and tenderness of the right upper arm. CT of the head showed no acute infarct or edema. CT of the abdomen and pelvis showed mild to moderate constipation with extensive calcifications. Shoulder x-ray showed an acute displaced partially visualized fracture of the right proximal humerus, but chest x-ray did not show any acute infiltrates. Laboratory work-up showed a leukocytosis of 14.9 with a hemoglobin of 8.3 and normal coagulation studies. Patient did have an elevated bicarbonate of 33, glucose of 524 and hyponatremia at 131. Liver function studies were relatively unremarkable, along with UA. Lactate was elevated at 3.7. EKG did show a prolonged QTC of 531, but otherwise sinus rhythm. Patient was given 30 cc/kg of IV fluids along with empiric Zosyn. Reportedly orthopedics was contacted, but there does not appear to be any documentation as to who was contacted. Since being in the intensive care unit, patient has remained hemodynamically stable. Patient did require minimal nasal cannula oxygen to maintain saturations with sleep. Patient has received over 6 L of IV fluids thus far. Patient did have a guaiac positive stool noted, but no obvious melena, hematochezia or hematemesis. Patient is unaware of any previous GI bleed issues. Patient does have an extensive smoking history, but has never been evaluated for COPD. Patient readily admits that he tends to avoid medical care if possible. Patient is not very forthcoming with the review of systems and states no to everything, including pain of the right arm. Review of systems otherwise negative from a constitutional, HEENT, respiratory, cardiovascular, GI, genitourinary, musculoskeletal, skin, neurologic, psychiatric and hematologic system unless stated above. Past Medical History Allergies No Known Allergies Allergy (Verified 04/24/20 10:44) Home Medications: Ambulatory Orders Medication Instructions Recorded Benazepril HCl 10 mg PO DAILY 04/24/20 Glimepiride [Amaryl] 2 mg PO DAILY 04/24/20 Metformin HCl [Glucophage Xr] 500 mg PO BID 04/24/20 Surgical History: no surgical history Psychiatric History: No pertinent psych hx Lives: With Family Smoking Status: Heavy Smoker (>10/day) Tobacco Use: Cigarettes Alcohol: None Drugs: None - *Family History Maternal History Items: Heart Disease Paternal History Items: No pertinent history Review of Systems Unable to obtain accurate/complete ROS d/t: See HPI. Patient resistant to questioning Patient Problems: Active and Suspected Problems Hypotension (Acute) Dehydration (Acute) Lactic acidosis (Acute) Syncope and collapse (Acute) Closed fracture of right proximal humerus (Acute) Anemia (Acute) Hyperglycemia (Acute) Objective: All imaging was personally reviewed. There does not appear to be any acute infiltrates on chest x-ray. Patient does not have any previous studies to review at [facility]. - Physical Exam Vitals/I&O's: Vital Signs Temp Pulse Resp BP Pulse Ox 36.8 C 87 22 H 116/57 L 99 04/25/20 04:00 04/25/20 07:00 04/25/20 07:00 04/25/20 07:00 04/25/20 07:00 Oxygen Flow Rate (L/min) 2 Oxygen Delivery Method Nasal Cannula Weight: 78.199 kg Body Mass Index (BMI) 23.6 Intake and Output for Last 24 Hours 04/23/20 04/24/20 04/25/20 23:59 23:59 23:59 Intake Total 3680.83 / 3680.83 1382.5 / 1382.5 Output Total 1375 / 1375 650 / 650 Balance 2305.83 / 2305.83 732.5 / 732.5 General: Alert, Oriented x3, Cooperative, No apparent distress, - - Appears older than stated age HEENT: Atraumatic, PERRLA, EOMI, Normocephalic, - - Scleral injection without icterus Oral: Moist Mucosa, No Gingival or Mucosal Lesions/ Ulcerations, - - Mallampati 3 Neck: Supple, No JVD, No Nodes, Trachea Midline Lungs: No rhonchi, No wheeze, No rales, Diminished, - - Fair effort Cardiovascular: Regular rate, Regular Rhythm, Normal S1, Normal S2, No murmurs, No rub noted, No Gallop Abdomen: Bowel Sounds Present, Soft, Non Tender, Non-Distended Extremities: No cyanosis, Clubbing, Edema - Trace lower extremity Skin: - - Multiple bruises of various stages of healing. Tobacco stained fingers Musculoskeletal: Tenderness - Palpation of the right upper extremity Lymphatic: No Cervical, Supraclavicular, or Inguinal Adenopathy Neurological: Cranial nerves II-XII grossly intact, Neuro grossly intact, Motor Exam 5/5 strength throughout Psych/Mental Status: Flat Affect Microbiology Past 72 Hours 04/24/20 20:10 Stool Stool Occult Blood (GRETCHEN) - Final Occult Blood Positive 04/24/20 13:26 Stool Stool Occult Blood (GRETCHEN) - Final Laboratory Results 04/24/20 10:50: WBC 14.9 H, RBC 2.88 L, Hgb 8.3 L, Hct 26.0 L, MCV 90.3, MCH 28.8, MCHC 31.9 L, RDW Std Deviation 43.1, RDW Coeff of Concetta 13.2, Plt Count 351, MPV 10.9, Immature Gran % (Auto) 1.900 H, Neut % (Auto) 86.1 H, Lymph % (Auto) 7.5 L, Burt % (Auto) 4.3, Eos % (Auto) 0.1, Baso % (Auto) 0.1, Absolute Neuts (auto) 12.8 H, Absolute Lymphs (auto) 1.12, Nucleated RBC % 0 04/24/20 10:50: PT 13.8, INR 1.1, APTT 25.2 04/24/20 10:50: Sodium 131 L, Potassium 3.4 L, Chloride 89 L, Carbon Dioxide 33.0 H, Anion Gap 9, BUN 43 H, Creatinine 1.11, Estim Creat Clear Calc 66.76, Est GFR (MDRD) Af Amer 86, Est GFR (MDRD) Non-Af 71, BUN/Creatinine Ratio 38.7 H, Glucose 524 H*, Calcium 7.3 L, Total Bilirubin 0.30, AST 13 L, ALT 17, Alkaline Phosphatase 79, Total Creatine Kinase 32 L, Total Protein 5.1 L, Albumin 1.9 L, Globulin 3.2, Albumin/Globulin Ratio 0.6 L 04/24/20 10:50: Lactic Acid 3.7 H* 04/24/20 10:50: Hemoglobin A1c 9.7 H 04/24/20 10:50: Iron 62 L, TIBC 146 L, Iron Saturation 42.5, Ferritin 398 H 04/24/20 10:50: Magnesium 1.9 04/24/20 10:50: Serum Osmolality 310 H 04/24/20 13:00: Urine Color Yellow, Urine Clarity Clear, Urine pH 5.0, Ur Specific [place] 1.005, Urine Protein Negative, Urine Glucose (UA) 1000 H, Urine Ketones 5 H, Urine Occult Blood 10 H, Urine Nitrite Negative, Urine Bilirubin Negative, Urine Urobilinogen Normal, Ur Leukocyte Esterase Negative, Urine RBC 0-5 SEEN, Urine WBC 0 SEEN, Ur Squamous Epith Cells 0-5 SEEN, Urine Bacteria 0 SEEN, Urine Mucus 0 SEEN 04/24/20 15:30: Blood Type O POSITIVE, Antibody Screen NEGATIVE 04/24/20 15:30: Lactic Acid 2.0 04/24/20 16:02: POC Glucose 263 H 04/24/20 17:30: Troponin I 0.295 H 04/24/20 20:15: Troponin I 0.480 H 04/24/20 21:20: POC Glucose 170 H 04/24/20 23:20: Troponin I 0.453 H 04/25/20 03:30: WBC 12.4 H, RBC 2.41 L, Hgb 6.9 L, Hct 21.3 L, MCV 88.4, MCH 28.6, MCHC 32.4, RDW Std Deviation 42.7, RDW Coeff of Concetta 13.3, Plt Count 322, MPV 10.4, Immature Gran % (Auto) 1.100 H, Neut % (Auto) 72.6 H, Lymph % (Auto) 19.4, Burt % (Auto) 5.7, Eos % (Auto) 1.0, Baso % (Auto) 0.2, Absolute Neuts (auto) 9.0 H, Absolute Lymphs (auto) 2.40, Nucleated RBC % 0 04/25/20 03:30: Sodium 143, Potassium 3.2 L, Chloride 108 H, Carbon Dioxide 28.0, Anion Gap 7, BUN 27 H, Creatinine 0.48 L, Estim Creat Clear Calc 169.95, Est GFR (MDRD) Af Amer 228, Est GFR (MDRD) Non-Af 188, BUN/Creatinine Ratio 56.5 H, Glucose 128 H, Calcium 7.1 L Current Medications Acetaminophen (Acetaminophen 325 Mg Tablet) 650 mg PO Q6H PRN PRN PRN Reason: Pain Score 1-10/Temp > 100.7 F Dextrose (Dextrose 50%-Water 25 Gm/50 Ml Disp.Syrin) 0 gm IV X1 PRN; Protocol PRN Reason: Hypoglycemia Glucagon (Glucagon 1 Mg/Ml Syringe) 1 mg IM .X1 PRN PRN Reason: Hypoglycemia Piperacillin Sod/Tazobactam (Sod 3.375 gm/ Sodium Chloride) 50 mls @ 12.5 mls/hr IV Q8 JESS Last Admin: 04/25/20 05:43 Dose: 12.5 mls/hr Documented by: Pantoprazole Sodium 40 mg/ (Sodium Chloride) 110 mls @ 330 mls/hr IV Q12 JESS Last Infusion: 04/25/20 01:00 Dose: Infused Documented by: Sodium Chloride () 500 mls @ 15 mls/hr IV PRN PRN PRN Reason: Blood Transfusion Sodium Chloride () 250 mls @ 15 mls/hr IV .[id number] PRN PRN Reason: Saline Flush Last Infusion: 04/25/20 05:43 Dose: 0 mls/hr Documented by: Sodium Chloride () 250 mls @ 15 mls/hr IV .[id number] PRN PRN Reason: Additional IVPB Infusion Potassium Chloride () 10 meq in 100 mls @ 100 mls/hr IV BOLUS Q1H [facility] Stop: 04/25/20 11:29 Insulin Glargine (Insulin Glargine 100 Units/Ml Pen) 10 units SC DAILY [facility] Insulin Human Lispro (Insulin Lispro 100 Unit/Ml Insuln.Pen) 0 unit SC ACHS [facility]; Protocol Last Admin: 04/24/20 21:20 Dose: 3 units Documented by: Morphine Sulfate (Morphine 2 Mg/Ml Syringe) 2 mg IV Q3H PRN PRN PRN Reason: Pain Score 6-10 Nicotine (Nicotine 21 Mg Patch) 21 mg TD DAILY [facility] Nitroglycerin (Nitroglycerin (Inpatient Use) 0.4 Mg Tab.Subl) 0.4 mg SUBLINGUAL Q5M PRN PRN Reason: CARDIAC/CHEST PAIN Nutritional Formula (Lactose Free) (Glucerna Shake 120 Ml Liquid) 120 ml PO 4X/DAY [facility] Last Admin: 04/24/20 21:15 Dose: Not Given Documented by: Ondansetron HCl (Ondansetron 4 Mg/2 Ml Vial) 4 mg IV Q8H PRN PRN PRN Reason: NAUSEA/VOMITING Sodium Chloride (0.9% Saline Lock 10 Ml Syringe) 10 - 40 ml IV UD PRN PRN Reason: SALINE FLUSH Last Admin: 04/25/20 00:39 Dose: 10 ml Documented by: Clinical Impression(s) from Imaging Studies Abdomen/Pelvis CT 04/24/20 11:01 IMPRESSION: Fluid-filled fluid-filled appearance of the stomach. Mild to moderate constipation. No visualized obstruction. No appendicitis. [id number] atherosclerotic disease of the aorta. Fairly dense coronary calcification. Electronically Signed: Nadege Tam MD at 12:36 EST Tel , Service support , Brain CT 04/24/20 11:01 IMPRESSION: Mild atrophy no visualized acute hemorrhage infarct or edema. Electronically Signed: Nadege Tam MD at 12:14 EST Tel , Service support , Shoulder X-Ray 04/24/20 11:01 IMPRESSION: Acute displaced partially visualized fracture of the right proximal humerus. Recommend consideration for dedicated right humerus study. Electronically Signed: Nadege Tam MD at 11:55 EST Tel , Service support , Chest X-Ray 04/24/20 11:37 IMPRESSION: Degenerative changes, as described above. No demonstrated acute cardiopulmonary process. Electronically Signed: Nadege Tam MD at 12:15 EST Tel , Service support , Assessment/Plan Active and Suspected Problems Hypotension (Acute) Dehydration (Acute) Lactic acidosis (Acute) Syncope and collapse (Acute) Closed fracture of right proximal humerus (Acute) Anemia (Acute) Hyperglycemia (Acute) RECOMMENDATIONS: 1. Await orthopedic recommendations for right upper extremity 2. Discontinue IV fluids 3. Transfuse blood if becomes hypotensive 4. Wean oxygen as tolerated 5. Initiate bowel regimen 6. Potassium supplementation IMPRESSIONS: 1. Hypovolemic versus septic shock Patient not very forthcoming at this time. Patient has received significant IV fluids and this may have led to an element of delusional anemia. Patient does have a guaiac positive stool, but has constipation on CT of the abdomen. Patient placed empirically on antibiotics. We will continue to monitor. Will discontinue IV fluids. Patient can be given blood if necessary. Lactic acidosis did respond well to fluid resuscitation. No significant hypoxia has been noted to explain lactic acidosis, so anticipate poor perfusion as an etiology. Patient did have significant leukocytosis on presentation. Continue empiric Zosyn pending cultures. 2. Poorly controlled diabetes mellitus type 2 Oral medications are being held. We will continue to monitor with fingerstick blood sugars. No indication for an insulin drip from my perspective. Await hemoglobin A1c, but anticipate poor control secondary to noncompliance with baseline therapy. 3. Proximal right humeral fracture Clinical suspicion for fracture secondary to mechanical fall. Orthopedics has reportedly been consulted, but anticipate conservative management. Patient would also benefit from evaluation by PT/OT and fall precautions. 4. Repeated syncope Patient does have a prolonged QT on presentation. Patient also with hypotension. Patient may require cardiac evaluation as he would be at high risk for coronary artery disease. Patient is on antihypertensives at baseline, but is likely not compliant as patient had no acute kidney injury despite the use of an DON inhibitor in the setting of hypovolemia. 5. Guaiac positive stools Patient reportedly has had dark stools, but not melena per the bedside nurse. Guaiac was positive. Unclear if patient would benefit from an outpatient work-up for occult GI bleed. Likely okay to transfuse blood and optimize hemodynamics with outpatient work-up from my perspective. 6. Poor historian/hyperlipidemia/extensive smoking history Complicates care, management, recovery and prognosis. Patient would likely benefit from evaluation for COPD as an outpatient. Patient does have clubbing on exam, so exertional hypoxemia would be a consideration. Patient should have a walking oximetry prior to discharge. Okay to continue baseline medications otherwise. Inpatient E&M: 61093 Init Hosp L3
[2020-04-25] MEDS: Potassium Chloride 10mEq/100mL 10 MEQ/100 ML IV.SOLN. 100 MEQ IV BOLUS ×4 (08:16→12:46)
[2020-04-25] MEDS: Insulin Lispro 100 UNIT/ML INSULN.PEN SC ×4 (08:18→20:26)
[2020-04-25 08:20] LABS: Bedside Glucose 161 mg/dL (70-110)
[2020-04-25] MEDS: Glucerna Shake 120 ML LIQUID PO ×4 (09:55→19:52)
--- NOTE | 2020-04-25 09:55 | PN_ITS ---
Patient Problems: Active and Suspected Problems Hypotension (Acute) Lactic acidosis (Acute) Syncope and collapse (Acute) Closed fracture of right proximal humerus (Acute) Anemia (Acute) Hyperglycemia (Acute) Subjective: Chief complaint: Follow-up after admission for septic versus hypovolemic shock, hyperglycemia, uncontrolled type 2 diabetes mellitus, syncope, anemia and right humeral fracture. Patient seen and examined. No acute events overnight. He has been receiving large amounts of IV fluids for hypotension, blood pressure improved. He did not require any vasopressors. Today, complains of right arm pain upon movement. No other complaints. He denied chest pain or shortness of breath. Denied abdominal pain, nausea or vomiting. He is afebrile, heart rate stable, blood pressure is stable at this time, pulse ox is 95% on room air. - Physical Exam Vitals/I&O's: Vital Signs Temp Pulse Resp BP Pulse Ox 98.2 F 96 22 H 138/96 H 94 04/25/20 08:00 04/25/20 09:00 04/25/20 09:00 04/25/20 09:00 04/25/20 09:00 Oxygen Flow Rate (L/min) 2 Oxygen Delivery Method Room Air Weight: 172 lb 6.4 oz Body Mass Index (BMI) 23.6 Intake and Output for Last 24 Hours 04/23/20 04/24/20 04/25/20 23:59 23:59 23:59 Intake Total 3680.83 / 3680.83 1432.5 / 1432.5 Output Total 1375 / 1375 650 / 650 Balance 2305.83 / 2305.83 782.5 / 782.5 General: Alert, Oriented x3, Cooperative, No apparent distress HEENT: Atraumatic, PERRLA, EOMI, Normocephalic Oral: Moist Mucosa, No Gingival or Mucosal Lesions/ Ulcerations Neck: Supple, No JVD, Negative Carotid Bruits, Trachea Midline, Thyroid Normal Size and Texture Lungs: Clear to auscultation, No rhonchi, No wheeze, No rales, Diminished Cardiovascular: Regular rate, Regular Rhythm, Normal S1, Normal S2, PMI Normal Abdomen: Bowel Sounds Present, Soft, Non Tender, Non-Distended, No Hepato- splenomegaly Extremities: No clubbing, No cyanosis, No edema Skin: No rashes, No breakdown, - - Extensive skin bruises on the right forearm. Lymphatic: No Cervical, Supraclavicular, or Inguinal Adenopathy Neurological: Cranial nerves II-XII grossly intact, Motor Exam 5/5 strength throughout Psych/Mental Status: Appropriate, Flat Affect Microbiology Past 72 Hours 04/24/20 20:10 Stool Stool Occult Blood (GRETCHEN) - Final Occult Blood Positive 04/24/20 13:26 Stool Stool Occult Blood (GRETCHEN) - Final Laboratory Results 04/24/20 10:50: WBC 14.9 H, RBC 2.88 L, Hgb 8.3 L, Hct 26.0 L, MCV 90.3, MCH 28.8, MCHC 31.9 L, RDW Std Deviation 43.1, RDW Coeff of [place] 13.2, Plt Count 351, MPV 10.9, Immature Gran % (Auto) 1.900 H, Neut % (Auto) 86.1 H, Lymph % (Auto) 7.5 L, [place] % (Auto) 4.3, Eos % (Auto) 0.1, Baso % (Auto) 0.1, Absolute Neuts (auto) 12.8 H, Absolute Lymphs (auto) 1.12, Nucleated RBC % 0 04/24/20 10:50: PT 13.8, INR 1.1, APTT 25.2 04/24/20 10:50: Sodium 131 L, Potassium 3.4 L, Chloride 89 L, Carbon Dioxide 33.0 H, Anion Gap 9, BUN 43 H, Creatinine 1.11, Estim Creat Clear Calc 66.76, Est GFR (MDRD) Af Amer 86, Est GFR (MDRD) Non-Af 71, BUN/Creatinine Ratio 38.7 H , Glucose 524 H*, Calcium 7.3 L, Total Bilirubin 0.30, AST 13 L, ALT 17, Alkaline Phosphatase 79, Total Creatine Kinase 32 L, Total Protein 5.1 L, Albumin 1.9 L, Globulin 3.2, Albumin/Globulin Ratio 0.6 L 04/24/20 10:50: Lactic Acid 3.7 H* 04/24/20 10:50: Hemoglobin A1c 9.7 H 04/24/20 10:50: Iron 62 L, TIBC 146 L, Iron Saturation 42.5, Ferritin 398 H 04/24/20 10:50: Magnesium 1.9 04/24/20 10:50: Serum Osmolality 310 H 04/24/20 13:00: Urine Color Yellow, Urine Clarity Clear, Urine pH 5.0, Ur Specific [place] 1.005, Urine Protein Negative, Urine Glucose (UA) 1000 H, Urine Ketones 5 H, Urine Occult Blood 10 H, Urine Nitrite Negative, Urine Bilirubin Negative, Urine Urobilinogen Normal, Ur Leukocyte Esterase Negative, Urine RBC 0-5 SEEN, Urine WBC 0 SEEN, Ur Squamous Epith Cells 0-5 SEEN, Urine Bacteria 0 SEEN, Urine Mucus 0 SEEN 04/24/20 15:30: Blood Type O POSITIVE, Antibody Screen NEGATIVE 04/24/20 15:30: Lactic Acid 2.0 04/24/20 16:02: POC Glucose 263 H 04/24/20 17:30: Troponin I 0.295 H 04/24/20 20:15: Troponin I 0.480 H 04/24/20 21:20: POC Glucose 170 H 04/24/20 23:20: Troponin I 0.453 H 04/25/20 03:30: WBC 12.4 H, RBC 2.41 L, Hgb 6.9 L, Hct 21.3 L, MCV 88.4, MCH 28.6, MCHC 32.4, RDW Std Deviation 42.7, RDW Coeff of [place] 13.3, Plt Count 322, MPV 10.4, Immature Gran % (Auto) 1.100 H, Neut % (Auto) 72.6 H, Lymph % (Auto) 19.4, [place] % (Auto) 5.7, Eos % (Auto) 1.0, Baso % (Auto) 0.2, Absolute Neuts (auto) 9.0 H, Absolute Lymphs (auto) 2.40, Nucleated RBC % 0 04/25/20 03:30: Sodium 143, Potassium 3.2 L, Chloride 108 H, Carbon Dioxide 28.0, Anion Gap 7, BUN 27 H, Creatinine 0.48 L, Estim Creat Clear Calc 169.95, Est GFR (MDRD) Af Amer 228, Est GFR (MDRD) Non-Af 188, BUN/Creatinine Ratio 56.5 H, Glucose 128 H, Calcium 7.1 L 04/25/20 08:13: POC Glucose 161 H Clinical Impression(s) from Imaging Studies Abdomen/Pelvis CT 02/28/21 11:01 IMPRESSION: Fluid-filled fluid-filled appearance of the stomach. Mild to moderate constipation. No visualized obstruction. No appendicitis. [id number] atherosclerotic disease of the aorta. Fairly dense coronary calcification. Electronically Signed: Nadege Tam MD at 12:36 EST Tel , Service support , Brain CT 04/24/20 11:01 IMPRESSION: Mild atrophy no visualized acute hemorrhage infarct or edema. Electronically Signed: Nadege Tam MD at 12:14 EST Tel , Service support , Shoulder X-Ray 04/24/20 11:01 IMPRESSION: Acute displaced partially visualized fracture of the right proximal humerus. Recommend consideration for dedicated right humerus study. Electronically Signed: Nadege Tam MD at 11:55 EST Tel , Service support , Chest X-Ray 04/24/20 11:37 IMPRESSION: Degenerative changes, as described above. No demonstrated acute cardiopulmonary process. Electronically Signed: Nadege Tam MD at 12:15 EST Tel , Service support , Current Medications Acetaminophen (Acetaminophen 325 Mg Tablet) 650 mg PO Q6H PRN PRN PRN Reason: Pain Score 1-10/Temp > 100.7 F Dextrose (Dextrose 50%-Water 25 Gm/50 Ml Disp.Syrin) 0 gm IV X1 PRN; Protocol PRN Reason: Hypoglycemia Glucagon (Glucagon 1 Mg/Ml Syringe) 1 mg IM .X1 PRN PRN Reason: Hypoglycemia Piperacillin Sod/Tazobactam (Sod 3.375 gm/ Sodium Chloride) 50 mls @ 12.5 mls/hr IV Q8 [facility] Last Infusion: 04/25/20 09:50 Dose: Infused Documented by: Pantoprazole Sodium 40 mg/ (Sodium Chloride) 110 mls @ 330 mls/hr IV Q12 [facility] Last Infusion: 04/25/20 01:00 Dose: Infused Documented by: Sodium Chloride () 500 mls @ 15 mls/hr IV PRN PRN PRN Reason: Blood Transfusion Sodium Chloride () 250 mls @ 15 mls/hr IV .[id number] PRN PRN Reason: Saline Flush Last Infusion: 04/25/20 05:43 Dose: 0 mls/hr Documented by: Sodium Chloride () 250 mls @ 15 mls/hr IV .[id number] PRN PRN Reason: Additional IVPB Infusion Potassium Chloride () 10 meq in 100 mls @ 100 mls/hr IV BOLUS Q1H [facility] Stop: 04/25/20 11:29 Last Admin: 04/25/20 08:16 Dose: 100 mls/hr Documented by: Insulin Glargine (Insulin Glargine 100 Units/Ml Pen) 10 units SC DAILY [facility] Insulin Human Lispro (Insulin Lispro 100 Unit/Ml Insuln.Pen) 0 unit SC ACHS [facility]; Protocol Last Admin: 04/25/20 08:18 Dose: 3 units Documented by: Morphine Sulfate (Morphine 2 Mg/Ml Syringe) 2 mg IV Q3H PRN PRN PRN Reason: Pain Score 6-10 Nicotine (Nicotine 21 Mg Patch) 21 mg TD DAILY [facility] Nitroglycerin (Nitroglycerin (Inpatient Use) 0.4 Mg Tab.Subl) 0.4 mg SUBLINGUAL Q5M PRN PRN Reason: CARDIAC/CHEST PAIN Nutritional Formula (Lactose Free) (Glucerna Shake 120 Ml Liquid) 120 ml PO 4X/DAY [facility] Last Admin: 04/24/20 21:15 Dose: Not Given Documented by: Ondansetron HCl (Ondansetron 4 Mg/2 Ml Vial) 4 mg IV Q8H PRN PRN PRN Reason: NAUSEA/VOMITING Sodium Chloride (0.9% Saline Lock 10 Ml Syringe) 10 - 40 ml IV UD PRN PRN Reason: SALINE FLUSH Last Admin: 04/25/20 00:39 Dose: 10 ml Documented by: Medical Necessity - Tobacco Use Smoking Status: Heavy Smoker (>10/day) Tobacco Use: Cigarettes Assessment/Plan All Active Problems Hypotension (Acute) Lactic acidosis (Acute) Syncope and collapse (Acute) Closed fracture of right proximal humerus (Acute) Anemia (Acute) Hyperglycemia (Acute) This is a 64 years old male patient presented to the emergency room because of weakness and syncope, found to have hypovolemic versus septic shock, hyperglycemia without DKA, anemia and right humerus fracture. #1 hypovolemic versus septic shock: Currently, he is on IV antibiotics, has been receiving IV fluid boluses. Blood pressure improved this morning, has been afebrile. Chest x-ray was unremarkable. Urinalysis showed no evidence of acute cystitis. CT scan abdomen and pelvis showed no intra-abdominal acute pathology. Blood and urine cultures are pending. Lactic acid is back to normal. Patient did not require any vasopressors. Plan: Continue same treatment, replace potassium, repeat CBC and BMP tomorrow morning. #2 hyperglycemia/uncontrolled type 2 diabetes mellitus: Without evidence of DKA. On admission, blood glucose was 524. Hemoglobin A1c was 9.7%. Currently, patient is on insulin and sliding scale. Home medications of glimepiride and Metformin held. Plan to continue same treatment. #3 recurrent syncope: Could be due to vasovagal syncope. EKG revealed prolonged QTC, no acute segment changes. Troponin was abnormal as below. CT scan brain showed no acute findings. #4 anemia: Unknown if this is acute or chronic, admission hemoglobin was 8.3, came down to 6.9 g/dL today. Patient received large amount of IV fluid boluses for hypotension. There is extensive ecchymosis on the right forearm, probably hematoma due to the fracture. It is microcytic anemia. Currently, no active obvious bleeding. Plan: Continue same treatment, monitor H&H, if hemoglobin continues to drop, we will do blood transfusion. #5 abnormal cardiac enzymes: Due to demand ischemia. EKG without acute segment changes. 2D echocardiogram ordered. #6 hypokalemia: He is on potassium replacement with IV potassium chloride. Serum magnesium is normal. Plan to repeat BMP tomorrow morning. #7 acute traumatic proximal right humeral fracture: He is on IV morphine as needed for pain. Orthopedic surgery consulted. #8 hypertension: Currently, antihypertensives are held because of low blood pressure. Blood pressure stabilized as above. #9 DVT prophylaxis: SCDs. This note was generated with Mirego dictation software. It may contain incorrect words, spelling, and punctuation that were not noted in checking the note before signing. Inpatient E&M: [id number] [facility] L3
--- NOTE | 2020-04-25 11:59 | CT_ITS ---
STUDY: CT RIGHT SHOULDER REASON FOR EXAM: Humeral fracture. TECHNIQUE: The patient was scanned in a multi detector CT scanner. High resolution transaxial imaging was performed without the administration of intravenous contrast material. Sagittal, coronal and 3-D images were reconstructed. Individualized dose optimization techniques were used for this CT. COMPARISON: Radiographs 04/24/2010. FINDINGS: Normal glenohumeral articulation. Normal glenoid rim, neck and visualized scapula. There is an impacted fracture of the surgical neck of the humerus with angulation and anterior displacement of the distal fragment by approximately 1 cm (sagittal reconstructions 41-48). There is a nondisplaced fracture of the greater tuberosity (coronal reconstruction 63-66). Normal coracoid process. Normal visualized lateral clavicle. There is mild acromioclavicular arthrosis (coronal reconstruction 71). There is a Type II morphology (curved), with a neutral orientation. There is a small pocket of gas in the anterior aspect of the fracture site (axial images 25-27). There is mild vascular calcification adjacent to the glenohumeral joint. CT/Extremity Upper without Contra IMPRESSION: Impacted angulated and anterior displaced fracture of the surgical neck and nondisplaced fracture of the greater tuberosity. Small pocket of gas at the anterior aspect of the fracture site. Mild acromioclavicular arthrosis. Electronically Signed: Vinay Oropeza MD at 13:06 EST Tel , Service support ,
[2020-04-25 13:06] LABS: Bedside Glucose 225 mg/dL (70-110)
--- NOTE | 2020-04-25 14:30 | CASEMGMT ---
[facility] Face to Face with patient for initial transition planning/care coordination assessment. RN CM introduced self and role at [facility]. Patient sitting in chair, alert and oriented. Patient willing to participate in assessment and is able to answer all questions appropriately. Care providers, pharmacy, and demographics verified. Patient wishes to discharge home, will monitor for need for HHC pending progress with therapy. Patient states he has no further needs or concerns at this time. CM to follow for discharge planning needs that may arise. PCP: Ahsan Specialists: none Preferred Pharmacy: [facility] Insurance: [employer] [place] Prescription Benefit: yes Living Will/HPOA: none LNOK: sons, DIL Living Arrangements: Patient lives with sons and DIL in a multi level home with bed and bath on the first floor. Patient states he was independent at home. Transportation: self/sons DME/HHC: Patient states he has crutches and walker at home. Patient denies previous HHC or SNF. Patient states he smokes cigarettes 1-2 packs per day. Disposition Plan: Patient to discharge home with family support and follow-up plans in place. Will monitor for need for HHC. Helen BASS, RN, CM
--- NOTE | 2020-04-25 15:43 | CON.PCM_ITS ---
- Consult Date of Consult: 04/25/20 Patient seen for consultation today at patient's bedside recliner. Patient was sitting upright and was alert and conversive with no signs of acute distress or discomfort during exam. Patient was able to carry on conversation and answer questions appropriately. Inspection of the right shoulder showed evident ge neralized ecchymosis in the shoulder/upper extremity with some mild generalized swelling. Patient has evident clubbing of the fingers/nailbeds with discoloration between the fingers from tobacco/nicotine use/dependence. He had minimal discomfort on palpation of the proximal humerus. He had no tenderness of the scapula, adjacent ribs (axillary), pectoralis, mid/distal humerus, or the rest of the lower arm. Patient had intact sensation to light touch throughout the extremity. Patient has soft compartments throughout the upper extremity. He does have intact motor function of the elbow/wrist/fingers (currently in a sling). He does have intact motor function of the shoulder at same time is decreased due to pain/discomfort. Palpable distal radial pulses slightly diminished. Capillary refill is also slightly delayed. At this time we did discuss patient's current proximal humerus fracture. His images including radiographs and CT scans were discussed with physician. Per discussion and review of images we are going to proceed with conservative care of the surgical neck fracture. Patient is to remain in the arm sling for at likely 3 to 4 weeks. I did adjust this position the arm with slight forward elevation and a little adduction as he was resting with the elbow sitting posterior. We may want to add an abdominal binder/strap to keep this position. Patient can begin pendulums with physical therapy as soon as he can tolerate this. Will likely stick with this motion for least a few weeks before progressing. Patient is to get out of the sling for 2-3 times daily for elbow range of motion to prevent stiffness here. They can apply ice to the shoulder 20 minutes every 1-2 hours as needed. Notify of increasing pains, swelling, or other changes. - Reason for Consult Right Proximal humerus fracture with anterior angulation and impaction with greater tuberosity involvement
[2020-04-25 17:11] LABS: Bedside Glucose 161 mg/dL (70-110)
[2020-04-25 20:31] LABS: Bedside Glucose 214 mg/dL (70-110)
--- NOTE | 2020-04-25 23:55 | NURSING ---
Pt asst to bathroom. Pt had a black stool.
[2020-04-26] VITALS (13 sets, daily range): BP systolic 100–155; BP diastolic 47–85; PULSE 69–95; RESP 16–20; TEMP 36.8–37.3; O2SAT 97–100; BMI 24.0
--- NOTE | 2020-04-26 05:11 | NURSING ---
pt refused to wear the scd. so i removed per pt request. Pt stated it was driving him crazy
--- NOTE | 2020-04-26 05:45 | NURSING ---
Pt has been awake all night long. Pt incont x3 times tonight. Pt refused to have blood drawn this am. once i talked to him pt allowed his blood to be drawn. Pt inappropriate at this time. confused about year.
[2020-04-26 06:07] LABS: Absolute Lymphocyte Count 2.09 X10^3/uL (0.83-4.51); Absolute Neutrophil Count 10.3 X10^3/uL (2.0-7.7); Basophil# 0.03 X10^3/uL; Basophil% 0.2 % (0-1); Eosinophil# 0.14 X10^3/uL; Hematocrit 22.7 % (40-54); Hemoglobin 7.1 g/dL (13.0-16.5); Lymphocyte # 2.09 X10^3/ul (4.0); Lymphocyte % 15.3 % (19-41); Mean Corp Hgb Conc 31.3 g/dL (32-36); Mean Corpuscular Hgb 28.5 pg (27.0-32.0); Mean Corpuscular Volume 91.2 fL (80-94); Mean Platelet Vol. 9.9 fl (6.2-12.0); Monocyte# 0.77 X10^3/uL; Monocyte% 5.6 % (0-10); NRBC Flagged by Analyzer 0 % (0-5); Neutrophil # 10.28 X10^3/uL (2.7-7.7); Neutrophil % 75.3 % (47-70); Platelet Count 346 K/mm3 (150-450); RBC Distribution Width CV 13.5 % (11.6-14.6); Red Blood Count 2.49 M/mm3 (4.6-6.2); White Blood Count 13.7 K/mm3 (4.4-11.0)
[2020-04-26 06:30] LABS: Anion Gap 5 (5-15); BUN 12 mg/dL (7-18); Calcium,Total 7.7 mg/dL (8.5-10.1); Chloride 107 mmol/L (98-107); Creatinine, Serum 0.52 mg/dL (0.70-1.30); EST Glomerular Filtration Rate 170 mL/min (>60); Est Glom Filt Rate - Afr Amer 206 mL/min (>60); Estimated Creatinine Clearance 156.88 ml/min; Glucose 142 mg/dL (74-106); Sodium Level 136 mmol/L (136-145)
[2020-04-26 06:41] LABS: Bedside Glucose 142 mg/dL (70-110)
--- NOTE | 2020-04-26 08:12 | PN_ITS ---
Patient Problems: Active and Suspected Problems Hypotension (Acute) Lactic acidosis (Acute) Syncope and collapse (Acute) Closed fracture of right proximal humerus (Acute) Anemia (Acute) Hyperglycemia (Acute) Subjective: Chief complaint: Follow-up after admission for septic versus hypovolemic shock, hyperglycemia, syncope, anemia and right humeral fracture. Patient seen and examined. No acute events overnight. Today, he denied any complaints. He has no more right arm pain. Denied chest pain or shortness of breath. Denied abdominal pain, nausea or vomiting. Denied fever chills. Denied dizziness or lightheadedness. His vital signs are stable, blood pressure stable. - Physical Exam Vitals/I&O's: Vital Signs Temp Pulse Resp BP Pulse Ox 98.5 F 91 18 143/62 H 98 04/26/20 03:49 04/26/20 06:57 04/26/20 03:49 04/26/20 03:49 04/26/20 03:49 Oxygen Flow Rate (L/min) 2 Oxygen Delivery Method Room Air Weight: 171 lb 15.369 oz Body Mass Index (BMI) 23.6 Intake and Output for Last 24 Hours 04/24/20 04/25/20 04/26/20 23:59 23:59 23:59 Intake Total 3680.83 / 3680.83 3062.5 / 3062.5 170 / 170 Output Total 1375 / 1375 1200 / 1200 100 / 100 Balance 2305.83 / 2305.83 1862.5 / 1862.5 70 / 70 General: Alert, Oriented x3, Cooperative, No apparent distress HEENT: Atraumatic, PERRLA, EOMI, Normocephalic Oral: Moist Mucosa, No Gingival or Mucosal Lesions/ Ulcerations Neck: Supple, No JVD, Negative Carotid Bruits, Trachea Midline, Thyroid Normal Size and Texture Lungs: Clear to auscultation, No rhonchi, No wheeze, No rales, Diminished Cardiovascular: Regular rate, Regular Rhythm, Normal S1, Normal S2, PMI Normal Abdomen: Bowel Sounds Present, Soft, Non Tender, Non-Distended, No Hepato- splenomegaly Extremities: No clubbing, No cyanosis, No edema Skin: No rashes, No breakdown Lymphatic: No Cervical, Supraclavicular, or Inguinal Adenopathy Neurological: Cranial nerves II-XII grossly intact, Neuro grossly intact Psych/Mental Status: Appropriate, Flat Affect Microbiology Past 72 Hours 04/24/20 13:00 Urine, Clean Catch Urine Culture - Final Mixed Gram Positive Organisms 04/24/20 10:50 Blood Culture (Wb) - Anticubital Left Blood Culture - Preliminary No growth in 48 hours. 04/24/20 10:55 Blood Culture (Wb) - Anticubital Right Blood Culture - Preliminary No growth in 48 hours. 04/24/20 20:10 Stool Stool Occult Blood (GRETCHEN) - Final Occult Blood Positive 04/24/20 13:26 Stool Stool Occult Blood (GRETCHEN) - Final Laboratory Results 04/24/20 15:30: Crossmatch See Detail 04/25/20 08:13: POC Glucose 161 H 04/25/20 12:57: POC Glucose 225 H 04/25/20 16:59: POC Glucose 161 H 04/25/20 20:23: POC Glucose 214 H 04/26/20 05:45: Sodium 136, Potassium 4.0, Chloride 107, Carbon Dioxide 24.0, Anion Gap 5, BUN 12, Creatinine 0.52 L, Estim Creat Clear Calc 156.88, Est GFR (MDRD) Af Amer 206, Est GFR (MDRD) Non-Af 170, BUN/Creatinine Ratio 23.0 H, Glucose 142 H, Calcium 7.7 L 04/26/20 05:45: WBC 13.7 H, RBC 2.49 L, Hgb 7.1 L, Hct 22.7 L, MCV 91.2, MCH 28.5, MCHC 31.3 L, RDW Std Deviation 45.0 H, RDW Coeff of Concetat 13.5, Plt Count 346, MPV 9.9, Immature Gran % (Auto) 2.600 H, Neut % (Auto) 75.3 H, Lymph % (Auto) 15.3 L, [place] % (Auto) 5.6, Eos % (Auto) 1.0, Baso % (Auto) 0.2, Absolute Neuts (auto) 10.3 H, Absolute Lymphs (auto) 2.09, Nucleated RBC % 0 04/26/20 06:38: POC Glucose 142 H Current Medications Acetaminophen (Acetaminophen 325 Mg Tablet) 650 mg PO Q6H PRN PRN PRN Reason: Pain Score 1-10/Temp > 100.7 F Dextrose (Dextrose 50%-Water 25 Gm/50 Ml Disp.Syrin) 0 gm IV X1 PRN; Protocol PRN Reason: Hypoglycemia Glucagon (Glucagon 1 Mg/Ml Syringe) 1 mg IM .X1 PRN PRN Reason: Hypoglycemia Piperacillin Sod/Tazobactam (Sod 3.375 gm/ Sodium Chloride) 50 mls @ 12.5 mls/hr IV Q8 [facility] Last Admin: 04/26/20 05:05 Dose: 12.5 mls/hr Documented by: Pantoprazole Sodium 40 mg/ (Sodium Chloride) 110 mls @ 330 mls/hr IV Q12 [facility] Last Infusion: 04/25/20 20:57 Dose: Infused Documented by: Sodium Chloride () 500 mls @ 15 mls/hr IV PRN PRN PRN Reason: Blood Transfusion Sodium Chloride () 250 mls @ 15 mls/hr IV .[id number] PRN PRN Reason: Saline Flush Last Infusion: 04/25/20 05:43 Dose: 0 mls/hr Documented by: Sodium Chloride () 250 mls @ 15 mls/hr IV .[id number] PRN PRN Reason: Additional IVPB Infusion Insulin Glargine (Insulin Glargine 100 Units/Ml Pen) 10 units SC DAILY [facility] Last Admin: 04/25/20 09:52 Dose: 10 u Documented by: Insulin Human Lispro (Insulin Lispro 100 Unit/Ml Insuln.Pen) 0 unit SC ACHS [facility]; Protocol Last Admin: 04/26/20 06:42 Dose: Not Given Documented by: Morphine Sulfate (Morphine 2 Mg/Ml Syringe) 2 mg IV Q3H PRN PRN PRN Reason: Pain Score 6-10 Nicotine (Nicotine 21 Mg Patch) 21 mg TD DAILY [facility] Last Admin: 04/25/20 09:52 Dose: 21 mg Documented by: Nitroglycerin (Nitroglycerin (Inpatient Use) 0.4 Mg Tab.Subl) 0.4 mg SUBLINGUAL Q5M PRN PRN Reason: CARDIAC/CHEST PAIN Nutritional Formula (Lactose Free) (Glucerna Shake 120 Ml Liquid) 120 ml PO 4X/DAY [facility] Last Admin: 04/25/20 19:52 Dose: 120 ml Documented by: Ondansetron HCl (Ondansetron 4 Mg/2 Ml Vial) 4 mg IV Q8H PRN PRN PRN Reason: NAUSEA/VOMITING Sodium Chloride (0.9% Saline Lock 10 Ml Syringe) 10 - 40 ml IV UD PRN PRN Reason: SALINE FLUSH Last Admin: 04/25/20 00:39 Dose: 10 ml Documented by: Medical Necessity - Tobacco Use Smoking Status: Heavy Smoker (>10/day) Tobacco Use: Cigarettes Assessment/Plan All Active Problems Hypotension (Acute) Lactic acidosis (Acute) Syncope and collapse (Acute) Closed fracture of right proximal humerus (Acute) Anemia (Acute) Hyperglycemia (Acute) This is a 64 years old male patient presented to the emergency room because of weakness and syncope, found to have hypovolemic versus septic shock, hyperglycemia without DKA, anemia and right humerus fracture. #1 hypovolemic versus septic shock: Remained on IV Zosyn. Blood pressure s tabilized, he did not require any IV fluid boluses. He has been afebrile, WBC is almost the same or slightly trending up. Chest x-ray was unremarkable. Urinalysis showed no evidence of acute cystitis. CT scan abdomen and pelvis showed no intra-abdominal acute pathology. Blood culture showed no growth in 48 hours. Urine culture revealed mixed growth. Lactic acid is back to normal. Patient did not require any vasopressors. Plan: Continue same treatment, may discontinue IV Zosyn in the next 24 to 48 hours if remains afebrile. #2 hyperglycemia/uncontrolled type 2 diabetes mellitus: Without evidence of DKA. Blood sugar under better control. Hemoglobin A1c was 9.7%. Currently, patient is on Lantus insulin and sliding scale. Home medications of glimepiride and Metformin held. Plan to continue same treatment. #3 recurrent syncope: Could be due to vasovagal syncope. EKG revealed prolonged QTC, no acute segment changes. Troponin was abnormal as below. CT scan brain showed no acute findings. #4 Iron deficiency anemia: Unknown if this is acute or chronic, admission hemoglobin was 8.3, came down to 6.9 g/dL and today, it is 7.1 g/dL.. Patient received large amount of IV fluid boluses for hypotension. Reportedly, nursing staff mentioned that patient had significant melena last night. Plan: Transfuse 1 unit packed RBCs, general surgery consult for upper EGD and possibly colonoscopy, continue IV Protonix. #5 abnormal cardiac enzymes: Due to demand ischemia. EKG without acute segment changes. 2D echocardiogram revealed ejection fraction of 65%, normal LV size and function, stage I diastolic dysfunction. #6 hypokalemia: Potassium was replaced and corrected, today's potassium is 4. Serum magnesium is normal. #7 acute traumatic proximal right humeral fracture: He is on IV morphine as needed for pain. He is on arm sling. Orthopedic surgery consulted, recommended no surgical repair at this time, continue arm sling for 3 to 4 weeks, follow-up with orthopedic surgery as outpatient. #8 hypertension: Blood pressure stabilized and started to go up. Plan to monitor. #9 DVT prophylaxis: SCDs. This note was generated with eduFire dictation software. It may contain incorrect words, spelling, and punctuation that were not noted in checking the note before signing. Inpatient E&M: 89432 Subs Hosp L2
--- NOTE | 2020-04-26 08:43 | PCM.PN.INT ---
Subjective: Patient transferred from the intensive care unit yesterday. Patient feels that he is doing well at this time. Right arm pain is controlled. Patient denies any dyspnea or orthostatic symptoms. General: Alert, Oriented x3, Cooperative, No apparent distress, - - Slight dysarthria HEENT: Atraumatic, PERRLA, EOMI, Normocephalic, - - Slight scleral injection without icterus Oral: Moist Mucosa, No Gingival or Mucosal Lesions/ Ulcerations Neck: Supple, No JVD, No Nodes, Trachea Midline Lungs: No rhonchi, No wheeze, No rales, Diminished, - - Fair effort. Symmetric expansion. Cardiovascular: Regular rate, Regular Rhythm, Normal S1, Normal S2, No murmurs, No rub noted, No Gallop Abdomen: Bowel Sounds Present, Soft, Non Tender, Non-Distended Extremities: No cyanosis, Clubbing Skin: - - No change from previous Musculoskeletal: No Tenderness to Palpation of Joints or Extremities Lymphatic: No Cervical, Supraclavicular, or Inguinal Adenopathy Neurological: Cranial nerves II-XII grossly intact, Neuro grossly intact Psych/Mental Status: Anxious, Restless Vital Signs Temp Pulse Resp BP Pulse Ox 36.9 C 91 18 143/62 H 98 04/26/20 03:49 04/26/20 06:57 04/26/20 03:49 04/26/20 03:49 04/26/20 03:49 Oxygen Flow Rate (L/min) 2 Oxygen Delivery Method Room Air Weight: 78 kg Body Mass Index (BMI) 23.6 Intake and Output for Last 24 Hours 04/24/20 04/25/20 04/26/20 23:59 23:59 23:59 Intake Total 3680.83 / 3680.83 3062.5 / 3062.5 170 / 170 Output Total 1375 / 1375 1200 / 1200 100 / 100 Balance 2305.83 / 2305.83 1862.5 / 1862.5 70 / 70 Labs (Last 48 Hours) 04/24/20 04/24/20 04/24/20 10:50 10:50 10:50 WBC 14.9 H RBC 2.88 L Hgb 8.3 L Hct 26.0 L MCV 90.3 MCH 28.8 MCHC 31.9 L RDW Std Deviation 43.1 RDW Coeff of [place] 13.2 Plt Count 351 MPV 10.9 Immature Gran % (Auto) 1.900 H Neut % (Auto) 86.1 H Lymph % (Auto) 7.5 L [place] % (Auto) 4.3 Eos % (Auto) 0.1 Baso % (Auto) 0.1 Absolute Neuts (auto) 12.8 H Absolute Lymphs (auto) 1.12 Nucleated RBC % 0 PT 13.8 INR 1.1 APTT 25.2 Sodium 131 L Potassium 3.4 L Chloride 89 L Carbon Dioxide 33.0 H Anion Gap 9 BUN 43 H Creatinine 1.11 Estim Creat Clear Calc 66.76 Est GFR (MDRD) Af Amer 86 Est GFR (MDRD) Non-Af 71 BUN/Creatinine Ratio 38.7 H Glucose 524 H* Hemoglobin A1c Serum Osmolality Lactic Acid Calcium 7.3 L Magnesium Iron TIBC Iron Saturation Ferritin Total Bilirubin 0.30 AST 13 L ALT 17 Alkaline Phosphatase 79 Total Creatine Kinase 32 L Troponin I Total Protein 5.1 L Albumin 1.9 L Globulin 3.2 Albumin/Globulin Ratio 0.6 L Urine Color Urine Clarity Urine pH Ur Specific [place] Urine Protein Urine Glucose (UA) Urine Ketones Urine Occult Blood Urine Nitrite Urine Bilirubin Urine Urobilinogen Ur Leukocyte Esterase Urine RBC Urine WBC Ur Squamous Epith Cells Urine Bacteria Urine Mucus POC Glucose Blood Type Antibody Screen Crossmatch 04/24/20 04/24/20 04/24/20 10:50 10:50 10:50 WBC RBC Hgb Hct MCV MCH MCHC RDW Std Deviation RDW Coeff of [place] Plt Count MPV Immature Gran % (Auto) Neut % (Auto) Lymph % (Auto) [place] % (Auto) Eos % (Auto) Baso % (Auto) Absolute Neuts (auto) Absolute Lymphs (auto) Nucleated RBC % PT INR APTT Sodium Potassium Chloride Carbon Dioxide Anion Gap BUN Creatinine Estim Creat Clear Calc Est GFR (MDRD) Af Amer Est GFR (MDRD) Non-Af BUN/Creatinine Ratio Glucose Hemoglobin A1c 9.7 H Serum Osmolality Lactic Acid 3.7 H* Calcium Magnesium Iron 62 L TIBC 146 L Iron Saturation 42.5 Ferritin 398 H Total Bilirubin AST ALT Alkaline Phosphatase Total Creatine Kinase Troponin I Total Protein Albumin Globulin Albumin/Globulin Ratio Urine Color Urine Clarity Urine pH Ur Specific [place] Urine Protein Urine Glucose (UA) Urine Ketones Urine Occult Blood Urine Nitrite Urine Bilirubin Urine Urobilinogen Ur Leukocyte Esterase Urine RBC Urine WBC Ur Squamous Epith Cells Urine Bacteria Urine Mucus POC Glucose Blood Type Antibody Screen Crossmatch 04/24/20 04/24/20 04/24/20 10:50 10:50 13:00 WBC RBC Hgb Hct MCV MCH MCHC RDW Std Deviation RDW Coeff of [place] Plt Count MPV Immature Gran % (Auto) Neut % (Auto) Lymph % (Auto) [place] % (Auto) Eos % (Auto) Baso % (Auto) Absolute Neuts (auto) Absolute Lymphs (auto) Nucleated RBC % PT INR APTT Sodium Potassium Chloride Carbon Dioxide Anion Gap BUN Creatinine Estim Creat Clear Calc Est GFR (MDRD) Af Amer Est GFR (MDRD) Non-Af BUN/Creatinine Ratio Glucose Hemoglobin A1c Serum Osmolality 310 H Lactic Acid Calcium Magnesium 1.9 Iron TIBC Iron Saturation Ferritin Total Bilirubin AST ALT Alkaline Phosphatase Total Creatine Kinase Troponin I Total Protein Albumin Globulin Albumin/Globulin Ratio Urine Color Yellow Urine Clarity Clear Urine pH 5.0 Ur Specific [place] 1.005 Urine Protein Negative Urine Glucose (UA) 1000 H Urine Ketones 5 H Urine Occult Blood 10 H Urine Nitrite Negative Urine Bilirubin Negative Urine Urobilinogen Normal Ur Leukocyte Esterase Negative Urine RBC 0-5 SEEN Urine WBC 0 SEEN Ur Squamous Epith Cells 0-5 SEEN Urine Bacteria 0 SEEN Urine Mucus 0 SEEN POC Glucose Blood Type Antibody Screen Crossmatch 04/24/20 04/24/20 04/24/20 15:30 15:30 15:30 WBC RBC Hgb Hct MCV MCH MCHC RDW Std Deviation RDW Coeff of [place] Plt Count MPV Immature Gran % (Auto) Neut % (Auto) Lymph % (Auto) [place] % (Auto) Eos % (Auto) Baso % (Auto) Absolute Neuts (auto) Absolute Lymphs (auto) Nucleated RBC % PT INR APTT Sodium Potassium Chloride Carbon Dioxide Anion Gap BUN Creatinine Estim Creat Clear Calc Est GFR (MDRD) Af Amer Est GFR (MDRD) Non-Af BUN/Creatinine Ratio Glucose Hemoglobin A1c Serum Osmolality Lactic Acid 2.0 Calcium Magnesium Iron TIBC Iron Saturation Ferritin Total Bilirubin AST ALT Alkaline Phosphatase Total Creatine Kinase Troponin I Total Protein Albumin Globulin Albumin/Globulin Ratio Urine Color Urine Clarity Urine pH Ur Specific [place] Urine Protein Urine Glucose (UA) Urine Ketones Urine Occult Blood Urine Nitrite Urine Bilirubin Urine Urobilinogen Ur Leukocyte Esterase Urine RBC Urine WBC Ur Squamous Epith Cells Urine Bacteria Urine Mucus POC Glucose Blood Type O POSITIVE Antibody Screen NEGATIVE Crossmatch See Detail 04/24/20 04/24/20 04/24/20 16:02 17:30 20:15 WBC RBC Hgb Hct MCV MCH MCHC RDW Std Deviation RDW Coeff of [place] Plt Count MPV Immature Gran % (Auto) Neut % (Auto) Lymph % (Auto) [place] % (Auto) Eos % (Auto) Baso % (Auto) Absolute Neuts (auto) Absolute Lymphs (auto) Nucleated RBC % PT INR APTT Sodium Potassium Chloride Carbon Dioxide Anion Gap BUN Creatinine Estim Creat Clear Calc Est GFR (MDRD) Af Amer Est GFR (MDRD) Non-Af BUN/Creatinine Ratio Glucose Hemoglobin A1c Serum Osmolality Lactic Acid Calcium Magnesium Iron TIBC Iron Saturation Ferritin Total Bilirubin AST ALT Alkaline Phosphatase Total Creatine Kinase Troponin I 0.295 H 0.480 H Total Protein Albumin Globulin Albumin/Globulin Ratio Urine Color Urine Clarity Urine pH Ur Specific [place] Urine Protein Urine Glucose (UA) Urine Ketones Urine Occult Blood Urine Nitrite Urine Bilirubin Urine Urobilinogen Ur Leukocyte Esterase Urine RBC Urine WBC Ur Squamous Epith Cells Urine Bacteria Urine Mucus POC Glucose 263 H Blood Type Antibody Screen Crossmatch 04/24/20 04/24/20 04/25/20 21:20 23:20 03:30 WBC 12.4 H RBC 2.41 L Hgb 6.9 L Hct 21.3 L MCV 88.4 MCH 28.6 MCHC 32.4 RDW Std Deviation 42.7 RDW Coeff of [place] 13.3 Plt Count 322 MPV 10.4 Immature Gran % (Auto) 1.100 H Neut % (Auto) 72.6 H Lymph % (Auto) 19.4 [place] % (Auto) 5.7 Eos % (Auto) 1.0 Baso % (Auto) 0.2 Absolute Neuts (auto) 9.0 H Absolute Lymphs (auto) 2.40 Nucleated RBC % 0 PT INR APTT Sodium Potassium Chloride Carbon Dioxide Anion Gap BUN Creatinine Estim Creat Clear Calc Est GFR (MDRD) Af Amer Est GFR (MDRD) Non-Af BUN/Creatinine Ratio Glucose Hemoglobin A1c Serum Osmolality Lactic Acid Calcium Magnesium Iron TIBC Iron Saturation Ferritin Total Bilirubin AST ALT Alkaline Phosphatase Total Creatine Kinase Troponin I 0.453 H Total Protein Albumin Globulin Albumin/Globulin Ratio Urine Color Urine Clarity Urine pH Ur Specific [place] Urine Protein Urine Glucose (UA) Urine Ketones Urine Occult Blood Urine Nitrite Urine Bilirubin Urine Urobilinogen Ur Leukocyte Esterase Urine RBC Urine WBC Ur Squamous Epith Cells Urine Bacteria Urine Mucus POC Glucose 170 H Blood Type Antibody Screen Crossmatch 04/25/20 04/25/20 04/25/20 03:30 08:13 12:57 WBC RBC Hgb Hct MCV MCH MCHC RDW Std Deviation RDW Coeff of [place] Plt Count MPV Immature Gran % (Auto) Neut % (Auto) Lymph % (Auto) [place] % (Auto) Eos % (Auto) Baso % (Auto) Absolute Neuts (auto) Absolute Lymphs (auto) Nucleated RBC % PT INR APTT Sodium 143 Potassium 3.2 L Chloride 108 H Carbon Dioxide 28.0 Anion Gap 7 BUN 27 H Creatinine 0.48 L Estim Creat Clear Calc 169.95 Est GFR (MDRD) Af Amer 228 Est GFR (MDRD) Non-Af 188 BUN/Creatinine Ratio 56.5 H Glucose 128 H Hemoglobin A1c Serum Osmolality Lactic Acid Calcium 7.1 L Magnesium Iron TIBC Iron Saturation Ferritin Total Bilirubin AST ALT Alkaline Phosphatase Total Creatine Kinase Troponin I Total Protein Albumin Globulin Albumin/Globulin Ratio Urine Color Urine Clarity Urine pH Ur Specific [place] Urine Protein Urine Glucose (UA) Urine Ketones Urine Occult Blood Urine Nitrite Urine Bilirubin Urine Urobilinogen Ur Leukocyte Esterase Urine RBC Urine WBC Ur Squamous Epith Cells Urine Bacteria Urine Mucus POC Glucose 161 H 225 H Blood Type Antibody Screen Crossmatch 04/25/20 04/25/20 04/26/20 16:59 20:23 05:45 WBC RBC Hgb Hct MCV MCH MCHC RDW Std Deviation RDW Coeff of [place] Plt Count MPV Immature Gran % (Auto) Neut % (Auto) Lymph % (Auto) [place] % (Auto) Eos % (Auto) Baso % (Auto) Absolute Neuts (auto) Absolute Lymphs (auto) Nucleated RBC % PT INR APTT Sodium 136 Potassium 4.0 Chloride 107 Carbon Dioxide 24.0 Anion Gap 5 BUN 12 Creatinine 0.52 L Estim Creat Clear Calc 156.88 Est GFR (MDRD) Af Amer 206 Est GFR (MDRD) Non-Af 170 BUN/Creatinine Ratio 23.0 H Glucose 142 H Hemoglobin A1c Serum Osmolality Lactic Acid Calcium 7.7 L Magnesium Iron TIBC Iron Saturation Ferritin Total Bilirubin AST ALT Alkaline Phosphatase Total Creatine Kinase Troponin I Total Protein Albumin Globulin Albumin/Globulin Ratio Urine Color Urine Clarity Urine pH Ur Specific [place] Urine Protein Urine Glucose (UA) Urine Ketones Urine Occult Blood Urine Nitrite Urine Bilirubin Urine Urobilinogen Ur Leukocyte Esterase Urine RBC Urine WBC Ur Squamous Epith Cells Urine Bacteria Urine Mucus POC Glucose 161 H 214 H Blood Type Antibody Screen Crossmatch 04/26/20 04/26/20 05:45 06:38 WBC 13.7 H RBC 2.49 L Hgb 7.1 L Hct 22.7 L MCV 91.2 MCH 28.5 MCHC 31.3 L RDW Std Deviation 45.0 H RDW Coeff of [place] 13.5 Plt Count 346 MPV 9.9 Immature Gran % (Auto) 2.600 H Neut % (Auto) 75.3 H Lymph % (Auto) 15.3 L [place] % (Auto) 5.6 Eos % (Auto) 1.0 Baso % (Auto) 0.2 Absolute Neuts (auto) 10.3 H Absolute Lymphs (auto) 2.09 Nucleated RBC % 0 PT INR APTT Sodium Potassium Chloride Carbon Dioxide Anion Gap BUN Creatinine Estim Creat Clear Calc Est GFR (MDRD) Af Amer Est GFR (MDRD) Non-Af BUN/Creatinine Ratio Glucose Hemoglobin A1c Serum Osmolality Lactic Acid Calcium Magnesium Iron TIBC Iron Saturation Ferritin Total Bilirubin AST ALT Alkaline Phosphatase Total Creatine Kinase Troponin I Total Protein Albumin Globulin Albumin/Globulin Ratio Urine Color Urine Clarity Urine pH Ur Specific [place] Urine Protein Urine Glucose (UA) Urine Ketones Urine Occult Blood Urine Nitrite Urine Bilirubin Urine Urobilinogen Ur Leukocyte Esterase Urine RBC Urine WBC Ur Squamous Epith Cells Urine Bacteria Urine Mucus POC Glucose 142 H Blood Type Antibody Screen Crossmatch Microbiology 04/24/20 13:00 Urine, Clean Catch Urine Culture - Final Mixed Gram Positive Organisms 04/24/20 10:50 Blood Culture (Wb) - Anticubital Left Blood Culture - Preliminary No growth in 48 hours. 04/24/20 10:55 Blood Culture (Wb) - Anticubital Right Blood Culture - Preliminary No growth in 48 hours. 04/24/20 20:10 Stool Stool Occult Blood (GRETCHEN) - Final Occult Blood Positive 04/24/20 13:26 Stool Stool Occult Blood (GRETCHEN) - Final Clinical Impression(s) from Imaging Studies Upper Extremity CT 04/25/20 11:59 IMPRESSION: Impacted angulated and anterior displaced fracture of the surgical neck and nondisplaced fracture of the greater tuberosity. Small pocket of gas at the anterior aspect of the fracture site. Mild acromioclavicular arthrosis. Electronically Signed: Vinay Oropeza MD at 13:06 EST Tel , Service support , Medical Necessity - Tobacco Use Smoking Status: Heavy Smoker (>10/day) Tobacco Use: Cigarettes Assessment/Plan All Active Problems Hypotension (Acute) Lactic acidosis (Acute) Syncope and collapse (Acute) Closed fracture of right proximal humerus (Acute) Anemia (Acute) Hyperglycemia (Acute) RECOMMENDATIONS: 1. Await orthopedic recommendations for right upper extremity 2. Hold on additional IV fluids 3. Walking oximetry prior to discharge 4. Follow-up in our office in 4 to 6 weeks for work-up of COPD if agreeable 5. Potassium supplementation as indicated 6. Hemodynamically stable on room air. Will sign off from a pulmonary/critical care perspective IMPRESSIONS: 1. Hypovolemic versus septic shock Patient not very forthcoming at this time. Patient has received significant IV fluids and this may have led to an element of delusional anemia. Patient does have a guaiac positive stool, but has constipation on CT of the abdomen. Patient placed empirically on antibiotics. These can likely be discontinued from my perspective given negative blood cultures. No significant hypoxia has been noted to explain lactic acidosis, so anticipate poor perfusion as an etiology. Patient did have significant leukocytosis on presentation. 2. Poorly controlled diabetes mellitus type 2 Oral medications are being held. We will continue to monitor with fingerstick blood sugars. No indication for an insulin drip from my perspective. Await hemoglobin A1c, but anticipate poor control secondary to noncompliance with baseline therapy. 3. Proximal right humeral fracture Clinical suspicion for fracture secondary to mechanical fall. Orthopedics has reportedly been consulted, but anticipate conservative management. Patient would also benefit from evaluation by PT/OT and fall precautions. 4. Repeated syncope Patient does have a prolonged QT on presentation. Patient also with hypotension. Patient may require cardiac evaluation as he would be at high risk for coronary artery disease. Patient is on antihypertensives at baseline, but is likely not compliant as patient had no acute kidney injury despite the use of an DON inhibitor in the setting of hypovolemia. 5. Guaiac positive stools Patient reportedly has had dark stools, but not melena per the bedside nurse. Guaiac was positive. Unclear if patient would benefit from an outpatient work-up for occult GI bleed. Likely okay to transfuse blood and optimize hemodynamics with outpatient work-up from my perspective. 6. Poor historian/hyperlipidemia/extensive smoking history Complicates care, management, recovery and prognosis. Patient would likely benefit from evaluation for COPD as an outpatient. Patient does have clubbing on exam, so exertional hypoxemia would be a consideration. Patient should have a walking oximetry prior to discharge. Okay to continue baseline medications otherwise. Inpatient E&M: 91578 Subs Hosp L2
[2020-04-26] MEDS: 0.9% Saline Lock 10 ML Syringe IV ×2 (11:03→21:41)
[2020-04-26] MEDS: Insulin Lispro 100 UNIT/ML INSULN.PEN SC ×3 (11:30→21:19)
[2020-04-26 12:01] LABS: Bedside Glucose 201 mg/dL (70-110)
--- NOTE | 2020-04-26 12:57 | CON.PCM_ITS ---
Reason for Consult Date of Consultation: 04/26/20 History of Present Illness: The patient is a 64 year old M admitted due to syncope also right humerus fracture from a fall 2 weeks ago patient also fell again a couple days ago. Patient typically does not seek out medical attention and is somewhat of a poor historian. Patient denies ever having a colonoscopy or EGD previously. Patient states he does not look at his stools. Patient's initial hemoglobin on admit was 8.3 did go down to 6.9 today was 7.1 patient is currently having 1 unit packed red blood cells. Per nursing patient had black stool overnight none yet for day shift. Patient is on Protonix IV currently.Did also discuss with patient's son Patrick Azul who is also his POA he also agrees does think patient ever had colonoscopy in the past.Patient denies any abdominal pain/nausea/vomiting/reflux. Past Medical History Past Medical History (Chronic Problems): Chronic Problems Type 2 diabetes mellitus (Chronic) Hypertension (Chronic) Allergies No Known Allergies Allergy (Verified 04/24/20 10:44) Home Medications: Ambulatory Orders Medication Instructions Recorded Benazepril HCl 10 mg PO DAILY 04/24/20 Glimepiride [Amaryl] 2 mg PO DAILY 04/24/20 Metformin HCl [Glucophage Xr] 500 mg PO BID 04/24/20 Oxycodone [Oxyir] 5 mg PO Q8H PRN PRN 3 Days #10 tab 04/28/20 Pantoprazole Sodium [Protonix] 40 mg PO BID #90 tab 04/28/20 Surgical History: no surgical history Psychiatric History: No pertinent psych hx Lives: With Family Smoking Status: Heavy Smoker (>10/day) Tobacco Use: Cigarettes Alcohol: None Drugs: None - *Family History Maternal History Items: Heart Disease Paternal History Items: No pertinent history Review of Systems Constitutional: Denies: Anorexia, Fever Eyes: Denies: Blurred vision HEENT: Denies: Difficulty Swallowing Cardiovascular: Denies: Chest Pain Respiratory: Denies: Cough Gastrointestinal: Denies: Abdominal Pain, Nausea, Vomiting Genitourinary: Denies: Dysuria Psychiatric: Denies: Depression Hematologic/ Lymphatic: Reports: Anemia. Denies: Easy Bruising, Easy Bleeding Patient Problems: Active and Suspected Problems Hypotension (Acute) Lactic acidosis (Acute) Syncope and collapse (Acute) Closed fracture of right proximal humerus (Acute) Anemia (Acute) Hyperglycemia (Acute) - Physical Exam Vitals/I&O's: Vital Signs Temp Pulse Resp BP Pulse Ox 98.6 F 69 18 117/54 L 99 04/26/20 12:04 04/26/20 12:04 04/26/20 11:04 04/26/20 12:04 04/26/20 11:04 Oxygen Flow Rate (L/min) 2 Oxygen Delivery Method Room Air Weight: 171 lb 15.369 oz Body Mass Index (BMI) 23.6 Intake and Output for Last 24 Hours 04/24/20 04/25/20 04/26/20 23:59 23:59 23:59 Intake Total 3680.83 / 3680.83 3062.5 / 3062.5 970 / 970 Output Total 1375 / 1375 1200 / 1200 100 / 100 Balance 2305.83 / 2305.83 1862.5 / 1862.5 870 / 870 General: Alert, Cooperative, No apparent distress HEENT: Atraumatic Lungs: Normal air movement Cardiovascular: Regular rate Abdomen: Soft, Non Tender, Non-Distended Neurological: Cranial nerves II-XII grossly intact Psych/Mental Status: Flat Affect Microbiology Past 72 Hours 04/24/20 13:00 Urine, Clean Catch Urine Culture - Final Mixed Gram Positive Organisms 04/24/20 10:50 Blood Culture (Wb) - Anticubital Left Blood Culture - Preliminary No growth in 48 hours. 04/24/20 10:55 Blood Culture (Wb) - Anticubital Right Blood Culture - Preliminary No growth in 48 hours. 04/24/20 20:10 Stool Stool Occult Blood (GRETCHEN) - Final Occult Blood Positive 04/24/20 13:26 Stool Stool Occult Blood (GRETCHEN) - Final Laboratory Results 04/24/20 15:30: Crossmatch See Detail 04/25/20 12:57: POC Glucose 225 H 04/25/20 16:59: POC Glucose 161 H 04/25/20 20:23: POC Glucose 214 H 04/26/20 05:45: Sodium 136, Potassium 4.0, Chloride 107, Carbon Dioxide 24.0, Anion Gap 5, BUN 12, Creatinine 0.52 L, Estim Creat Clear Calc 156.88, Est GFR (MDRD) Af Amer 206, Est GFR (MDRD) Non-Af 170, BUN/Creatinine Ratio 23.0 H, Glucose 142 H, Calcium 7.7 L 04/26/20 05:45: WBC 13.7 H, RBC 2.49 L, Hgb 7.1 L, Hct 22.7 L, MCV 91.2, MCH 28.5, MCHC 31.3 L, RDW Std Deviation 45.0 H, RDW Coeff of Concetta 13.5, Plt Count 346, MPV 9.9, Immature Gran % (Auto) 2.600 H, Neut % (Auto) 75.3 H, Lymph % (Auto) 15.3 L, Lake % (Auto) 5.6, Eos % (Auto) 1.0, Baso % (Auto) 0.2, Absolute Neuts (auto) 10.3 H, Absolute Lymphs (auto) 2.09, Nucleated RBC % 0 04/26/20 06:38: POC Glucose 142 H 04/26/20 11:28: POC Glucose 201 H Current Medications Acetaminophen (Acetaminophen 325 Mg Tablet) 650 mg PO Q6H PRN PRN PRN Reason: Pain Score 1-10/Temp > 100.7 F Dextrose (Dextrose 50%-Water 25 Gm/50 Ml Disp.Syrin) 0 gm IV X1 PRN; Protocol PRN Reason: Hypoglycemia Glucagon (Glucagon 1 Mg/Ml Syringe) 1 mg IM .X1 PRN PRN Reason: Hypoglycemia Piperacillin Sod/Tazobactam (Sod 3.375 gm/ Sodium Chloride) 50 mls @ 12.5 mls/hr IV Q8 [facility] Last Admin: 04/26/20 12:42 Dose: 12.5 mls/hr Documented by: Pantoprazole Sodium 40 mg/ (Sodium Chloride) 110 mls @ 330 mls/hr IV Q12 [facility] Last Infusion: 04/26/20 11:31 Dose: Infused Documented by: Sodium Chloride () 500 mls @ 15 mls/hr IV PRN PRN PRN Reason: Blood Transfusion Sodium Chloride () 250 mls @ 15 mls/hr IV .[id number] PRN PRN Reason: Saline Flush Last Infusion: 04/25/20 05:43 Dose: 0 mls/hr Documented by: Sodium Chloride () 250 mls @ 15 mls/hr IV .[id number] PRN PRN Reason: Additional IVPB Infusion Insulin Glargine (Insulin Glargine 100 Units/Ml Pen) 10 units SC DAILY [facility] Last Admin: 04/26/20 08:58 Dose: Not Given Documented by: Insulin Human Lispro (Insulin Lispro 100 Unit/Ml Insuln.Pen) 0 unit SC ACHS [facility]; Protocol Last Admin: 04/26/20 11:30 Dose: 3 units Documented by: Morphine Sulfate (Morphine 2 Mg/Ml Syringe) 2 mg IV Q3H PRN PRN PRN Reason: Pain Score 6-10 Nicotine (Nicotine 21 Mg Patch) 21 mg TD DAILY [facility] Last Admin: 04/26/20 08:59 Dose: 21 mg Documented by: Nitroglycerin (Nitroglycerin (Inpatient Use) 0.4 Mg Tab.Subl) 0.4 mg SUBLINGUAL Q5M PRN PRN Reason: CARDIAC/CHEST PAIN Nutritional Formula (Lactose Free) (Glucerna Shake 120 Ml Liquid) 120 ml PO 4X/DAY [facility] Last Admin: 04/26/20 11:31 Dose: Not Given Documented by: Ondansetron HCl (Ondansetron 4 Mg/2 Ml Vial) 4 mg IV Q8H PRN PRN PRN Reason: NAUSEA/VOMITING Sodium Chloride (0.9% Saline Lock 10 Ml Syringe) 10 - 40 ml IV UD PRN PRN Reason: SALINE FLUSH Last Admin: 04/26/20 11:03 Dose: 10 ml Documented by: Assessment/Plan All Active Problems Hypotension (Acute) Lactic acidosis (Acute) Syncope and collapse (Acute) Closed fracture of right proximal humerus (Acute) Anemia (Acute) Hyperglycemia (Acute) 64-year-old male with GI bleed, melena, anemia I have discussed the above with the patient And his son MONTY Nguyen over the phone. I have offered the patient EGD andcolonoscopy for evaluation. I have explained the risks/benefits of the procedure and described the procedure. I have discussed the risks with the patient, including but not limited to: infection, bleeding, perforation of the GI tract requiring emerg ency surgery, inability to complete the procedure, injury to any internal organs, complications of anesthesia, etc. - the patient understands and agrees to proceed. I have answered all the patient's questions to the patient's satisfaction and the patient has no further questions. The patient has been given instructions for the colon cleansing preparation.Did order MiraLAX Dulcolax prep Plan for tomorrow about 10:30 AM. Carole Camejo M.D. Pager: [phone] [facility] [address] [place] [address] [address] [place] [address] Office: [phone] Procedure Criteria Procedure Type: Elective COVID Risk Discussion: The surgeon/proceduralist and patient have discussed in detail the risk of exposure to and/or potential harm posed by the COVID-19 virus with having a surgery/procedure at this time versus the risk of delaying the surgery/procedure. It is not possible to know either the risk of delaying the surgery or procedure or chance of getting an infection with perfect accuracy, but a joint decision was made between the patient and the surgeon/proceduralist to proceed at this time with the scheduled surgery/procedure as indicated on the consent form. Inpatient E&M: 10794 Init Hosp L3
[2020-04-26] MEDS: Bisacodyl 5 MG Tablet 20 MG PO (14:42)
[2020-04-26] MEDS: Polyethylene Glycol 3350 BOWEL PREP PO (14:42)
[2020-04-26 17:00] LABS: Bedside Glucose 261 mg/dL (70-110)
[2020-04-26 18:21] LABS: Hematocrit 28.2 % (40-54); Hemoglobin 9.2 g/dL (13.0-16.5)
[2020-04-26] MEDS: Bisacodyl 5 MG Tablet 10 MG PO (21:20)
[2020-04-26 22:00] LABS: Bedside Glucose 261 mg/dL (70-110)
[2020-04-27] VITALS (15 sets, daily range): BP systolic 107–155; BP diastolic 50–75; PULSE 63–96; RESP 16–18; TEMP 36.6–36.9; O2SAT 95–99; BMI 23.3
[2020-04-27] MEDS: Bisacodyl 5 MG Tablet 10 MG PO (03:58)
[2020-04-27 06:46] LABS: Bedside Glucose 118 mg/dL (70-110)
[2020-04-27 07:24] LABS: Absolute Lymphocyte Count 2.22 X10^3/uL (0.83-4.51); Absolute Neutrophil Count 9.6 X10^3/uL (2.0-7.7); Basophil# 0.03 X10^3/uL; Basophil% 0.2 % (0-1); Eosinophil# 0.17 X10^3/uL; Eosinophils% 1.3 % (0-5); Hematocrit 28.9 % (40-54); Hemoglobin 9.3 g/dL (13.0-16.5); Lymphocyte # 2.22 X10^3/ul (4.0); Mean Corp Hgb Conc 32.2 g/dL (32-36); Mean Corpuscular Hgb 28.7 pg (27.0-32.0); Mean Corpuscular Volume 89.2 fL (80-94); Mean Platelet Vol. 9.8 fl (6.2-12.0); Monocyte# 0.67 X10^3/uL; Monocyte% 5.1 % (0-10); NRBC Flagged by Analyzer 0 % (0-5); Neutrophil # 9.62 X10^3/uL (2.7-7.7); Neutrophil % 73.6 % (47-70); Platelet Count 350 K/mm3 (150-450); RBC Distribution Width CV 13.9 % (11.6-14.6); RBC Distribution Width SD 44.6 fl (35.1-43.9); Red Blood Count 3.24 M/mm3 (4.6-6.2); White Blood Count 13.1 K/mm3 (4.4-11.0)
--- NOTE | 2020-04-27 10:10 | CASEMGMT ---
Pt's plan is to go home at discharge and pt also defers to son for decisions. Call to son, Patrick, as pt is currently getting scopes and son states they would like pt to come home at discharge and declines need for HHC at this time. Son would like a script for OP therapy and states they will decide once pt home. Son states no further concerns/needs at this time. CM to follow for any further discharge planning/needs. SStjacqui CARBONE CM
--- NOTE | 2020-04-27 10:30 | IMM_PTH ---
PATIENT: NITO ELIAS LOC: [facility] U#:[id number] AGE/SX: 64/M ROOM: [facility] RE04/24/[address]: Dr. Jovanny Betts MD : 1955 BED: 1 DIS: 04/28/2020 SPEC #: [id number] RECD: 04/27/20 12:42 STATUS: SOUJesús REQ #: [id number] WAI: 04/27/20 10:[address]: Carloe Camejo DEPT: IMMUNOHISTOCHEMISTRY RECD BY: Nidhi Hastings ENTERED: 04/27/20 12:44 SP TYPE: IMMUNO OTHR DR: Dr. Simba Argueta, DO Dr. Justus Foreman, MD Dr. Joe Gerard Dr., DO Dr. Jennifer Lechuga MD Tissues: C - Stomach, NOS J - Pyloric antrum Procedures: H Pylori (initial) SMA (add) CALPONIN-1 (add) CD34 (add) DESMIN (add) Vimentin (initial) PHYSICIAN & [address] [address] SPECIMEN INFORMATION: Tissue Source: C - Antral biopsy, J - Prepyloric biopsy Clinical Info: Anemia, GI bleed, melena Specimen Number: [id number] C & J CPT code: 43803 x2, 62439 x4 METHODOLOGY: Deparaffinized sections of prefer/formalin-fixed tissue or PAP/DQ stained slides are incubated with monoclonal/polyclonal antibodies/oligonucleotide probes. Localization is made via biotin free immunoperoxidase method. Appropriate controls are performed and reacted as expected. Results on target cell population are indicated in the following table: RESULTS: ANTIBODY / CLONE RESULT Block C H Pylori (polyclonal) negative Block J Vimentin (V9) positive Calponin-1 (GY856W) positive CD34 (QBEnd-10) negative Actin (1A4) positive Desmin (CE-R-11) negative These tests were developed and their performance characteristics determined by [facility]. They may not have been cleared or approved by the U.S. Food and Drug Administration. The FDA has determined that such clearance or approval is not necessary. The above immunohistochemical/dualISH markers are ordered and reviewed by the pathologist. INTERPRETATION: C. Antral biopsy: Negative for Helicobacter pylori organisms. J. Prepyloric biopsy: Extensive ulceration, associated inflammation, granulation tissue reaction and reactive changes, negative for malignancy. SJ:angela 05/02/2020
--- NOTE | 2020-04-27 10:30 | EGD_PTH ---
PATIENT: NITO ELIAS LOC: [facility] U#:[id number] AGE/SX: 64/M ROOM: [facility] RE04/24/[address]: Dr. Jovanny Betts MD : 1955 BED: 1 DIS: 04/28/2020 SPEC #: [id number] RECD: 04/27/20 10:30 STATUS: JADA JACKELIN #: [id number] WAI: 04/27/20 10:[address]: Carole Camejo DEPT: SURGICAL PATHOLOGY RECD BY: Nidhi Hastings ENTERED: 04/27/20 11:07 SP TYPE: EGD BIOPSY OTHR DR: Dr. Simba Argueta, DO Dr. Justus Foreman, DO MD Dr. Joe Harmon, DO Dr. Jennifer Lechuga MD Tissues: A - Pyloric antrum B - Stomach, NOS C - Pyloric antrum D - Cecum, NOS E - Ascending colon F - Transverse colon G - Transverse colon H - Descending colon I - Sigmoid colon biopsy J - Pyloric antrum Procedures: Frozen Section (charge) Special Stain Group I Surgery Specimen Level IV GMS Stain (control) HEADER OPERATION: Colonoscopy, E[place] [place] PRE-OP DIAGNOSIS: Anemia, GI bleed, melena TISSUE SUBMITTED: A - Prepyloric biopsy, FS at 1027, B - Antral biopsy, FS at 1027, C - Antral biopsy for H. pylori and path, for permanent, D - Cecum biopsies, E - Proximal ascending colon biopsies, F??Transverse colon polyp, G - Distal transverse colon polyp, H - Descending colon polyp, I - Sigmoid colon polyp at 35, J - Prepyloric biopsies for permanent FROZEN SECTION DIAGNOSIS A. Prepyloric biopsy: Fragments of tissue with ulceration, necrosis and granulation tissue reaction, negative for viable malignancy. B. Antral biopsy: Gastritis. Negative for malignancy. SJ:angela 04/27/2020 MICROSCOPIC DIAGNOSIS A. Prepyloric biopsy: Fragments of tissue with ulceration, necrosis, granulation tissue reaction and reactive changes. See comment. B. Antral biopsy: Moderate gastritis. Negative for malignancy. See microscopic description. C. Antral biopsy: Moderate gastritis. See microscopic description and comment. D. Cecum, biopsy: Fragments of tubular adenoma. E. Proximal ascending colon, biopsy: Fragments of tubular adenoma. F. Transverse colon polyp, biopsy: Tubular adenoma. G. Distal transverse colon polyp, biopsy: Fragments of tubular adenoma. H. Descending colon polyp, biopsy: Fragments of tubular adenoma. I. Sigmoid colon polyp at 35 cm, biopsy: Fragments of tubular adenoma. J. Prepyloric biopsy: Fragments of tissue with ulceration, necrosis, granulation tissue reaction and reactive changes. See comment. COMMENT A. Special stain for fungi is positive numerous for organisms (yeast forms with focal budding); matched control is appropriate. C. The results of immunohistochemistry for Helicobacter pylori will be reported separately ([id number]). J. Immunohistochemistry ([id number]) supports the above diagnosis. Special stain for fungi is positive numerous for organisms (yeast forms with focal budding); matched control is appropriate. This case is discussed with Dr. Camejo on 04/28/20 and 04/29/20. Case has been reviewed in consultation with Dr. Alvarado who concurs with the above diagnosis. IDC:AM MICROSCOPIC DESCRIPTION Slides are reviewed. B & C. The specimen shows fragments of gastric mucosa with chronic inflammatory cell infiltrates in the lamina propria consisting of lymphocytes and plasma cells, consistent with moderate chronic gastritis. GROSS DESCRIPTION A - Received fresh for frozen section diagnosis labeled with the patient's name is a specimen designated prepyloric biopsy. The specimen consists of multiple irregular fragments of tapia soft tissue that in aggregate measure 0.4 x 0.2 x 0.1 cm. The entire specimen is submitted for frozen section diagnosis in one cassette. B - Received fresh for frozen section diagnosis labeled with the patient's name is a specimen designated antral biopsy. The specimen consists of a piece of tapia soft tissue measuring 0.7 x 0.1 x 0.1 cm. The entire specimen is submitted for frozen section diagnosis in one cassette. C - Received in fixative is one container labeled with the patient's name and designated antral biopsy. The specimen consists of one irregular fragment of light tapia soft tissue that measures 0.7 x 0.2 x 0.1 cm. The specimen is totally submitted in one cassette. D - Received in fixative is one container labeled with the patient's name and designated cecum biopsy. The specimen consists of multiple irregular fragments of light tapia soft tissue that in aggregate measure 1 x 0.2 x 0.1 cm. The specimen is totally submitted in one cassette. E - Received in fixative is one container labeled with the patient's name and designated proximal ascending colon biopsy. The specimen consists of multiple irregular fragments of light tapia soft tissue that in aggregate measure 1.3 x 0.3 x 0.1 cm. The specimen is totally submitted in one cassette. F - Received in fixative is one container labeled with the patient's name and designated transverse colon polyp. The specimen consists of one irregular fragment of light tapia soft tissue that measures 0.3 x 0.3 x 0.2 cm. The specimen is totally submitted in one cassette. G - Received in fixative is one container labeled with the patient's name and designated distal transverse colon polyp. The specimen consists of multiple irregular fragments of light tapia soft tissue that in aggregate measure 2 x 0.3 x 0.1 cm. The specimen is totally submitted in one cassette. H - Received in fixative is one container labeled with the patient's name and designated descending colon polyp. The specimen consists of two fragments of tapia-pink polyp measuring in aggregate 1 x 0.5 x 0.3 cm. The entire specimen is submitted in one cassette. I - Received in fixative is one container labeled with the patient's name and designated sigmoid colon polyp at 35 cm. The specimen consists of a tapia-pink polyp measuring 1.4 x 1 x 1 cm. The apparent base of polyp is inked black. The polyp is serially sectioned. Also present in the container are multiple fragments of tapia soft tissue in aggregate 0.5 x 0.3 x 0.1 cm. The entire specimen is submitted in one cassette. J - Received in fixative is one container labeled with the patient's name and designated prepyloric biopsy for permanent. The specimen consists of multiple irregular fragments of light tapia soft tissue that in aggregate measure 1 x 0.5 x 0.1 cm. The specimen is totally submitted in one cassette. / ERIC:angela 04/27/20 TC:3 CPT: 55431 x10, 90031 x2, 65191 x2
--- NOTE | 2020-04-27 11:38 | OP.EGD_ITS ---
Patient Name: Patrick Johansen Procedure Date: 04/27/2020 9:59 AM Date of : 1955 Age: 64 Procedure: Upper GI endoscopy Indications: Iron deficiency anemia, Melena Providers: Carole Camejo MD Medicines: Monitored Anesthesia Care Patient Profile: This is a 64 year old male. Complications: No immediate complications. Procedure: Pre-Anesthesia Assessment: - Prior to the procedure, a History and Physical was performed, and patient medications and allergies were reviewed. The patient's tolerance of previous anesthesia was also reviewed. The risks and benefits of the procedure and the sedation options and risks were discussed with the patient. All questions were answered, and informed consent was obtained. Prior Anticoagulants: The patient has taken no previous anticoagulant or antiplatelet agents. ASA Grade Assessment: Per anesthesia. After reviewing the risks and benefits, the patient was deemed in satisfactory condition to undergo the procedure. After obtaining informed consent, the endoscope was passed under direct vision. Throughout the procedure, the patient's blood pressure, pulse, and oxygen saturations were monitored continuously. The gastroscope was introduced through the mouth, and advanced to the second part of duodenum. The upper GI endoscopy was technically difficult and complex due to unable to visualize the pylorus due to abnormal mucosa likely malignant. The patient tolerated the procedure well. Scope In: 10:16:14 AM Scope Out: 10:26:11 AM Total Procedure Duration Time 0 hours 9 minutes 57 seconds Findings: The Z-line was variable and was found 40 cm from the incisors. Localized severe mucosal changes characterized by discoloration, friability (with contact bleeding) and sloughing were found in the prepyloric region of the stomach. Biopsies were taken with a cold forceps for histology. Moderately erythematous mucosa without bleeding was found in the gastric antrum. Biopsies were taken with a cold forceps for histology. Biopsies were taken with a cold forceps for Helicobacter pylori cultures. The examined duodenum was normal. The cardia and gastric fundus were normal on retroflexion. Frozen biopsies of preplyoric abnormal mucosa only showed necrosis no obvious malignancy. EGD was replaced after colonoscopy for additional permanent biopsies of this area. Impression: - Z-line variable, 40 cm from the incisors. - Discolored and friable (with contact bleeding) mucosa in the prepyloric region of the stomach. Biopsied. - Erythematous mucosa in the antrum. Biopsied. - Normal examined duodenum. Recommendation: - Await pathology results. - Full liquid diet. - Continue present medications. Procedure Code(s): --- Professional --- 65988, Esophagogastroduodenoscopy, flexible, transoral; with biopsy, single or multiple Diagnosis Code(s): --- Professional --- K22.8, Other specified diseases of esophagus K92.2, Gastrointestinal hemorrhage, unspecified K31.89, Other diseases of stomach and duodenum D50.9, Iron deficiency anemia, unspecified K92.1, Melena (includes Hematochezia) CPT copyright 2017 [employer]. All rights reserved. The codes documented in this report are preliminary and upon dental ceramist helper review may be revised to meet current compliance requirements. MD Carole Valerio MD 04/27/2020 11:38:15 AM This report has been signed electronically. Number of Addenda: 0 Note Initiated On: 04/27/2020 9:59 AM
--- NOTE | 2020-04-27 11:39 | OP.CCLET_ITS ---
04/27/2020 Jsutus Foreman Re : Upper GI endoscopy procedure for Patrick Johansen Dear Ahsan This procedure was performed on Monday, April 27, 2020. My impressions and recommendations are as follows: Impressions : - Z-line variable, 40 cm from the incisors. - Discolored and friable (with contact bleeding) mucosa in the prepyloric region of the stomach. Biopsied. - Erythematous mucosa in the antrum. Biopsied. - Normal examined duodenum. Recommendations : - Await pathology results. - Full liquid diet. - Continue present medications. My findings are described in the full procedure note, which is enclosed. If I can be of further assistance, please feel free to contact me at Doctor phone number(s): , Work: . Sincerely, MD Carole Valerio MD 04/27/2020 11:38:15 AM This report has been signed electronically.
--- NOTE | 2020-04-27 11:50 | OP.COLON_ITS ---
Patient Name: Patrick Johansen Procedure Date: 04/27/2020 10:27 AM Date of : 1955 Age: 64 Procedure: Colonoscopy Indications: Melena, Iron deficiency anemia Providers: Carole Camejo MD Medicines: Monitored Anesthesia Care Patient Profile: This is a 64 year old male. Last Colonoscopy: none. The patient's first colonoscopy is today. Complications: No immediate complications. Procedure: Pre-Anesthesia Assessment: - Prior to the procedure, a History and Physical was performed, and patient medications and allergies were reviewed. The patient's tolerance of previous anesthesia was also reviewed. The risks and benefits of the procedure and the sedation options and risks were discussed with the patient. All questions were answered, and informed consent was obtained. Prior Anticoagulants: The patient has taken no previous anticoagulant or antiplatelet agents. ASA Grade Assessment: Per anesthesia. After reviewing the risks and benefits, the patient was deemed in satisfactory condition to undergo the procedure. After I obtained informed consent, the scope was passed under direct vision. Throughout the procedure, the patient's blood pressure, pulse, and oxygen saturations were monitored continuously. The pediatric colonoscope was introduced through the anus and advanced to the cecum, identified by the appendiceal orifice, ileocecal valve and palpation. The colonoscopy was performed without difficulty. The patient tolerated the procedure well. The quality of the bowel preparation was adequate to identify polyps 6 mm and larger in size. Scope In: 10:25:24 AM Scope Withdrawal Time 0 hours 35 minutes 8 seconds Scope Out: 11:10:13 AM Total Procedure Duration Time 0 hours 44 minutes 49 seconds Findings: Hemorrhoids were found on perianal exam. 2 areas of carpet-like carpet-like polyps were found in the proximal ascending colon and cecum. The polyps were 4 to 10 mm in size. Polyp resection was incomplete due to polyp size (too large to be completely excised). Biopsies were taken with a cold forceps for histology. Four semi-pedunculated polyps were found in the sigmoid colon, descending colon, transverse colon and distal transverse colon. The polyps were 6 to 12 mm in size. These polyps were removed with a hot snare. Resection and retrieval were complete. ?polyp abutting internal hemorroids- did not attempt to remove due to possible bleeding and pt will need an additional colonoscopy in the future due to incomplete resection of cecal & prox ascending colon polyps---depend also if the prepyloric lesion is a malignancy as well. Impression: - Hemorrhoids found on perianal exam. - 2 areas of carpet-like 4 to 10 mm polyps in the proximal ascending colon and in the cecum. Biopsied. - Four 6 to 12 mm polyps in the sigmoid colon, in the descending colon, in the transverse colon and in the distal transverse colon, removed with a hot snare. Resected and retrieved. Recommendation: - Return patient to [facility] for ongoing care. - Await pathology results. - Repeat colonoscopy at appointment to be scheduled incomplete polyp resection. Also depends on pathology at prepyloric area. - Continue present medications. Procedure Code(s): --- Professional --- 23303, Colonoscopy, flexible; with removal of tumor(s), polyp(s), or other lesion(s) by snare technique 95168, 59, Colonoscopy, flexible; with biopsy, single or multiple Diagnosis Code(s): --- Professional --- K64.9, Unspecified hemorrhoids D12.2, Benign neoplasm of ascending colon D12.0, Benign neoplasm of cecum D12.5, Benign neoplasm of sigmoid colon D12.4, Benign neoplasm of descending colon D12.3, Benign neoplasm of transverse colon (hepatic flexure or splenic flexure) K92.1, Melena (includes Hematochezia) D50.9, Iron deficiency anemia, unspecified CPT copyright 2017 [employer]. All rights reserved. The codes documented in this report are preliminary and upon customer order clerk review may be revised to meet current compliance requirements. MD Carole Valerio MD 04/27/2020 11:49:40 AM This report has been signed electronically. Number of Addenda: 0 Note Initiated On: 04/27/2020 10:27 AM
--- NOTE | 2020-04-27 11:50 | OP.CCLET_ITS ---
04/27/2020 Justus Foreman Re : Colonoscopy procedure for Patrick Johansen Dear Ahsan This procedure was performed on Monday, April 27, 2020. My impressions and recommendations are as follows: Impressions : - Hemorrhoids found on perianal exam. - 2 areas of carpet-like 4 to 10 mm polyps in the proximal ascending colon and in the cecum. Biopsied. - Four 6 to 12 mm polyps in the sigmoid colon, in the descending colon, in the transverse colon and in the distal transverse colon, removed with a hot snare. Resected and retrieved. Recommendations : - Return patient to [facility] for ongoing care. - Await pathology results. - Repeat colonoscopy at appointment to be scheduled incomplete polyp resection. Also depends on pathology at prepyloric area. - Continue present medications. My findings are described in the full procedure note, which is enclosed. If I can be of further assistance, please feel free to contact me at Doctor phone number(s): , Work: . Sincerely, MD Carole Valerio MD 04/27/2020 11:49:40 AM This report has been signed electronically.
--- NOTE | 2020-04-27 12:13 | PCM.PROGNOTE ---
Patient Problems: Active and Suspected Problems Hypotension (Acute) Lactic acidosis (Acute) Syncope and collapse (Acute) Closed fracture of right proximal humerus (Acute) Anemia (Acute) Hyperglycemia (Acute) Subjective: Chief complaint: Follow-up after admission for septic versus hypovolemic shock, hyperglycemia, syncope, anemia and right humeral fracture. Patient seen and examined. No acute events overnight. He has no complaints today. His vital signs are stable. Today, he underwent upper EGD that revealed abnormal and friable mucosa of the prepyloric region, biopsies were taken. He underwent colonoscopy that revealed hemorrhoids, he had multiple colonic polyps which was resected. - Physical Exam Vitals/I&O's: Vital Signs Temp Pulse Resp BP Pulse Ox 98.1 F 84 16 125/74 H 95 04/27/20 11:50 04/27/20 11:50 04/27/20 11:50 04/27/20 11:50 04/27/20 11:50 Oxygen Flow Rate (L/min) 2 Oxygen Delivery Method Room Air Weight: 167 lb 5.294 oz Body Mass Index (BMI) 23.3 Intake and Output for Last 24 Hours 04/25/20 04/26/20 04/27/20 23:59 23:59 23:59 Intake Total 3062.5 / 3062.5 4250 / 4250 110 / 110 Output Total 1200 / 1200 100 / 100 450 / 450 Balance 1862.5 / 1862.5 4150 / 4150 -340 / -340 General: Alert, Oriented x3, Cooperative, No apparent distress HEENT: Atraumatic, PERRLA, EOMI, Normocephalic Oral: Moist Mucosa, No Gingival or Mucosal Lesions/ Ulcerations Neck: Supple, No JVD, Negative Carotid Bruits, Trachea Midline, Thyroid Normal Size and Texture Lungs: Clear to auscultation, No rhonchi, No wheeze, No rales, Diminished Cardiovascular: Regular rate, Regular Rhythm, Normal S1, Normal S2, PMI Normal Abdomen: Bowel Sounds Present, Soft, Non Tender, Non-Distended, No Hepato-splenomegaly Extremities: No clubbing, No cyanosis, No edema Skin: No rashes, No breakdown Lymphatic: No Cervical, Supraclavicular, or Inguinal Adenopathy Neurological: Cranial nerves II-XII grossly intact, Neuro grossly intact Psych/Mental Status: Appropriate, Flat Affect Microbiology Past 72 Hours 04/26/20 14:40 Mucosa - Nose SARS-CoV-2 Antigen (Rapid) - Final 04/24/20 13:00 Urine, Clean Catch Urine Culture - Final Mixed Gram Positive Organisms 04/24/20 10:50 Blood Culture (Wb) - Anticubital Left Blood Culture - Preliminary No growth in 48 hours. 04/24/20 10:55 Blood Culture (Wb) - Anticubital Right Blood Culture - Preliminary No growth in 48 hours. 04/24/20 20:10 Stool Stool Occult Blood (GRETCHEN) - Final Occult Blood Positive 04/24/20 13:26 Stool Stool Occult Blood (GRETCHEN) - Final Laboratory Results 04/24/20 15:30: Crossmatch See Detail 04/26/20 16:32: POC Glucose 261 H 04/26/20 18:01: Hgb 9.2 L, Hct 28.2 L 04/26/20 21:18: POC Glucose 261 H 04/27/20 06:36: POC Glucose 118 H 04/27/20 07:00: WBC 13.1 H, RBC 3.24 L, Hgb 9.3 L, Hct 28.9 L, MCV 89.2, MCH 28.7, MCHC 32.2, RDW Std Deviation 44.6 H, RDW Coeff of Concetta 13.9, Plt Count 350, MPV 9.8, Immature Gran % (Auto) 2.800 H, Neut % (Auto) 73.6 H, Lymph % (Auto) 17.0 L, [place] % (Auto) 5.1, Eos % (Auto) 1.3, Baso % (Auto) 0.2, Absolute Neuts (auto) 9.6 H, Absolute Lymphs (auto) 2.22, Nucleated RBC % 0 Current Medications Acetaminophen (Acetaminophen 325 Mg Tablet) 650 mg PO Q6H PRN PRN PRN Reason: Pain Score 1-10/Temp > 100.7 F Dextrose (Dextrose 50%-Water 25 Gm/50 Ml Disp.Syrin) 0 gm IV X1 PRN; Protocol PRN Reason: Hypoglycemia Glucagon (Glucagon 1 Mg/Ml Syringe) 1 mg IM .X1 PRN PRN Reason: Hypoglycemia Piperacillin Sod/Tazobactam (Sod 3.375 gm/ Sodium Chloride) 50 mls @ 12.5 mls/hr IV Q8 JESS Last Admin: 04/27/20 05:11 Dose: 12.5 mls/hr Documented by: Pantoprazole Sodium 40 mg/ (Sodium Chloride) 110 mls @ 330 mls/hr IV Q12 [facility] Last Infusion: 04/26/20 21:42 Dose: Infused Documented by: Sodium Chloride () 500 mls @ 15 mls/hr IV PRN PRN PRN Reason: Blood Transfusion Sodium Chloride () 250 mls @ 15 mls/hr IV .[id number] PRN PRN Reason: Saline Flush Last Infusion: 04/25/20 05:43 Dose: 0 mls/hr Documented by: Sodium Chloride () 250 mls @ 15 mls/hr IV .[id number] PRN PRN Reason: Additional IVPB Infusion Insulin Glargine (Insulin Glargine 100 Units/Ml Pen) 10 units SC DAILY [facility] Last Admin: 04/27/20 08:30 Dose: Not Given Documented by: Insulin Human Lispro (Insulin Lispro 100 Unit/Ml Insuln.Pen) 0 unit SC ACHS [facility]; Protocol Last Admin: 04/27/20 06:37 Dose: Not Given Documented by: Morphine Sulfate (Morphine 2 Mg/Ml Syringe) 2 mg IV Q3H PRN PRN PRN Reason: Pain Score 6-10 Nicotine (Nicotine 21 Mg Patch) 21 mg TD DAILY [facility] Last Admin: 04/26/20 08:59 Dose: 21 mg Documented by: Nitroglycerin (Nitroglycerin (Inpatient Use) 0.4 Mg Tab.Subl) 0.4 mg SUBLINGUAL Q5M PRN PRN Reason: CARDIAC/CHEST PAIN Nutritional Formula (Lactose Free) (Glucerna Shake 120 Ml Liquid) 120 ml PO 4X/DAY [facility] Last Admin: 04/27/20 08:31 Dose: Not Given Documented by: Ondansetron HCl (Ondansetron 4 Mg/2 Ml Vial) 4 mg IV Q8H PRN PRN PRN Reason: NAUSEA/VOMITING Sodium Chloride (0.9% Saline Lock 10 Ml Syringe) 10 - 40 ml IV UD PRN PRN Reason: SALINE FLUSH Last Admin: 04/26/20 21:41 Dose: 10 ml Documented by: Medical Necessity - Tobacco Use Smoking Status: Heavy Smoker (>10/day) Tobacco Use: Cigarettes Assessment/Plan All Active Problems Hypotension (Acute) Lactic acidosis (Acute) Syncope and collapse (Acute) Closed fracture of right proximal humerus (Acute) Anemia (Acute) Hyperglycemia (Acute) This is a 64 years old male patient presented to the emergency room because of weakness and syncope, found to have hypovolemic versus septic shock, hyperglycemia without DKA, anemia and right humerus fracture. #1 hypovolemic versus septic shock: Remained on IV Zosyn. His vital signs has been stable, afebrile. Chest x-ray was unremarkable. Urinalysis showed no evidence of acute cystitis. CT scan abdomen and pelvis showed no intra-abdominal acute pathology. Blood culture showed no growth in 48 hours. Urine culture revealed mixed growth. Lactic acid is back to normal. Plan: Discontinue IV Zosyn, repeat CBC tomorrow morning. #2 hyperglycemia/uncontrolled type 2 diabetes mellitus: Without evidence of DKA. Blood sugar under better control. Hemoglobin A1c was 9.7%. Currently, patient is on Lantus insulin and sliding scale. Home medications of glimepiride and Metformin held. Plan to continue same treatment. #3 recurrent syncope: Could be due to vasovagal syncope. EKG revealed prolonged QTC, no acute segment changes. Troponin was abnormal as below. CT scan brain showed no acute findings. #4 Iron deficiency anemia: Unknown if this is acute or chronic, admission hemoglobin was 8.3, came down to 6.9 g/dL. He received 1 unit of packed RBCs and today's hemoglobin is 9.3 g/dL. Today, he underwent upper EGD that revealed abnormal discolored and friable mucosa and the prepyloric region, biopsy was taken and malignancy is in the differential diagnosis. Colonoscopy also done and showed multiple colon polyps that was resected. General surgeon on the case. Plan to keep patient in the hospital today awaiting the results of the gastric mucosa biopsy to rule out malignancy. Repeat CBC tomorrow morning. #5 abnormal cardiac enzymes: Due to demand ischemia. EKG without acute segment changes. 2D echocardiogram revealed ejection fraction of 65%, normal LV size and function, stage I diastolic dysfunction. #6 hypokalemia: Potassium was replaced and corrected, yesterday potassium is 4. Serum magnesium is normal. #7 acute traumatic proximal right humeral fracture: He is on IV morphine as needed for pain. He is on arm sling. Orthopedic surgery consulted, recommended no surgical repair at this time, continue arm sling for 3 to 4 weeks, follow-up with orthopedic surgery as outpatient. #8 hypertension: Blood pressure has been stable. Patient was on benazepril at home which is on hold now. #9 DVT prophylaxis: SCDs. This note was generated with [employer] software. It may contain incorrect words, spelling, and punctuation that were not noted in checking the note before signing. Inpatient E&M: 15803 Subs Hosp L2
[2020-04-27 12:40] LABS: Bedside Glucose 185 mg/dL (70-110)
[2020-04-27 17:35] LABS: Bedside Glucose 186 mg/dL (70-110)
[2020-04-27] MEDS: Glucerna Shake 120 ML LIQUID PO (21:40)
[2020-04-27] MEDS: Insulin Lispro 100 UNIT/ML INSULN.PEN SC (21:41)
[2020-04-27 22:15] LABS: Bedside Glucose 268 mg/dL (70-110)
[2020-04-28 03:00] VITALS: PULSE 80
[2020-04-28 04:20] VITALS: BP 139/68; PULSE 84; RESP 16; TEMP 36.9; O2SAT 95
[2020-04-28 06:10] LABS: Hematocrit 27.8 % (40-54); Hemoglobin 9.1 g/dL (13.0-16.5)
[2020-04-28 07:00] VITALS: PULSE 83
[2020-04-28 07:06] LABS: Bedside Glucose 139 mg/dL (70-110)
[2020-04-28 08:07] VITALS: BP 135/65; PULSE 79; RESP 18; TEMP 36.7; O2SAT 96
--- NOTE | 2020-04-28 10:20 | CASEMGMT ---
According to the MMO website, the following are in-network tertiary facilities: [facility], [facility], [facility], [facility], [facility], [facility], [facility], and . [facility]
--- NOTE | 2020-04-28 10:29 | DCINST_ITS ---
- Discharge Diagnoses Current Active Problems: Current Active and Chronic Problems Hypotension (Acute) Lactic acidosis (Acute) Syncope and collapse (Acute) Closed fracture of right proximal humerus (Acute) Anemia (Acute) Hyperglycemia (Acute) You will use the following diet at home:: Calorie/Carbohydrate Controlled (s pecify 1200, 1400, etc) - 1800 eamon. Your food should be the consistency of: Regular Discharge Activity: Return to Normal Activity Weight Bearing Status: Weight bearing as tolerated Call your doctor if you observe: Fever of 101 or Higher, Shortness of breath, Dizziness, Fainting spells, Chest pain, Increased palpitations (irregular heartbeat), Uncontrolled pain Allergies/Adverse Reactions: Allergies No Known Allergies Allergy (Verified 04/24/20 10:44) Medications to take at Discharge Benazepril HCl 10 mg PO DAILY 04/24/20 Glimepiride [Amaryl] 2 mg PO DAILY 04/24/20 Metformin HCl [Glucophage Xr] 500 mg PO BID 04/24/20 Oxycodone [Oxyir] 5 mg PO Q8H PRN PRN 3 Days #10 tab 04/28/20 Pantoprazole Sodium [Protonix] 40 mg PO BID #90 tab 04/28/20 The following prescriptions were given: Oxycodone [Oxyir] 5 mg PO Q8H PRN PRN 3 Days #10 tab PRN Reason: Pain Score 6-10 Prescription Printed Pantoprazole Sodium [Protonix] 40 mg PO BID #90 tab Prescription Printed Primary Care Physician: Justus Foreman DO [Primary Care Provider] - Please follow up with your Primary Care Physician in: 1 week. Test Results: Test results from this visit will be discussed in further detail at your follow- up appointment, if applicable.
[2020-04-28 11:21] LABS: Bedside Glucose 149 mg/dL (70-110)
[2020-04-28] MEDS: Glucerna Shake 120 ML LIQUID PO (14:02)
[2020-04-28 14:10] VITALS: BP 109/64; PULSE 92; RESP 18; TEMP 36.7; O2SAT 99
--- NOTE | 2020-04-28 15:41 | PHA.DC.MC ---
Pharmacy Service has performed discharge medication reconciliation and counseling for this patient. The patient was counseled on the following discharge medications and changes in medications for homegoing were reviewed. 1. PROTONIX 2. OXYCODONE The Reason for Use, instructions for use, and potential side effects were reviewed for all new medications. The patient's questions regarding all of their medications were answered. The patient was not able to adequately demonstrate understanding. Pt's son to come in this evening to go over medications and dc instructions. Notified RN that Krames sheets were left in pt room for reinforcement once son arrives. Home Medications Benazepril HCl 10 mg PO DAILY 04/24/20 Glimepiride [Amaryl] 2 mg PO DAILY 04/24/20 Metformin HCl [Glucophage Xr] 500 mg PO BID 04/24/20 Oxycodone [Oxyir] 5 mg PO Q8H PRN PRN 3 Days #10 tab 04/28/20 Pantoprazole Sodium [Protonix] 40 mg PO BID #90 tab 04/28/20 The patient's discharge medication list was reviewed for discrepancies and discrepancies were resolved.
--- NOTE | 2020-05-03 11:14 | PCM.DC.SUM ---
Discharge Date and Diagnosis - Problem List Patient Problems: Active and Suspected Problems Hypotension (Acute) Lactic acidosis (Acute) Syncope and collapse (Acute) Closed fracture of right proximal humerus (Acute) Anemia (Acute) Hyperglycemia (Acute) Date of Admission: 04/24/20 Date of Discharge: 04/28/20 - Primary Discharge Diagnosis Acute Problems: Active Problems 1- hypovolumic versus septic shock. 2- Hyperglycemia/ uncontrolled type 2 DM. 3- Iron deficiency anemia. 4- Prepyloric region mucosal discoloration/friability with contact bleeding. 5- recurrent vasovagal syncope. 6- abnormal cardiac enzymes due to demand ischemia. 7- Acute traumatic right proximal humeral fracture. 8- Hypokalemia. - Secondary Discharge Diagnosis Chronic Problems: Chronic Problems Type 2 diabetes mellitus (Chronic) Hypertension (Chronic) Hospital Course and Treatment Imaging Results: Clinical Impression(s) from Imaging Studies Abdomen/Pelvis CT 04/24/20 11:01 IMPRESSION: Fluid-filled fluid-filled appearance of the stomach. Mild to moderate constipation. No visualized obstruction. No appendicitis. [id number] atherosclerotic disease of the aorta. Fairly dense coronary calcification. Electronically Signed: Nadege Tam MD at 12:36 EST Tel , Service support , Brain CT 04/24/20 11:01 IMPRESSION: Mild atrophy no visualized acute hemorrhage infarct or edema. Electronically Signed: Nadege Tam MD at 12:14 EST Tel , Service support , Shoulder X-Ray 04/24/20 11:01 IMPRESSION: Acute displaced partially visualized fracture of the right proximal humerus. Recommend consideration for dedicated right humerus study. Electronically Signed: Nadege Tam MD at 11:55 EST Tel , Service support , Chest X-Ray 04/24/20 11:37 IMPRESSION: Degenerative changes, as described above. No demonstrated acute cardiopulmonary process. Electronically Signed: Nadege Tam MD at 12:15 EST Tel , Service support , Upper Extremity CT 04/25/20 11:59 IMPRESSION: Impacted angulated and anterior displaced fracture of the surgical neck and nondisplaced fracture of the greater tuberosity. Small pocket of gas at the anterior aspect of the fracture site. Mild acromioclavicular arthrosis. Electronically Signed: Vinay Oropeza MD at 13:06 EST Tel , Service support , Dr. Camejo. General surgery. Operations: None Procedures: Blood transfusion, Colonoscopy, EGD Summary of Care Provided: Pt seen and examined on the day of discharge and appeared stable to be discharged home with home health. He had no complaints. His vital signs were stable. This is a 64 years old male patient presented to the emergency room because of weakness and syncope, found to have hypovolemic versus septic shock, hyperglycemia without DKA, anemia and right humerus fracture. #1 hypovolemic versus septic shock: Treated with IV fluids and empiric IV Zosyn. Chest x-ray was unremarkable. Urinalysis showed no evidence of acute cystitis. CT scan abdomen and pelvis showed no intra-abdominal acute pathology. Blood culture showed no growth in 48 hours. Urine culture revealed mixed growth. Lactic acid is back to normal. He completed 5 days of IV zosyn. #2 hyperglycemia/uncontrolled type 2 diabetes mellitus: Without evidence of DKA. Treated with lantus and sliding scale. Blood sugar stabilized. Hemoglobin A1c was 9.7%. He was started back on metformin and glimiperide. #3 recurrent syncope: Could be due to vasovagal syncope. EKG revealed prolonged QTC, no acute segment changes. Troponin was abnormal as below. CT scan brain showed no acute findings. #4 Iron deficiency anemia: Unknown if this is acute or chronic, admission hemoglobin was 8.3, came down to 6.9 g/dL. He received 1 unit of packed RBCs and discharge hemoglobin is 9.1 g/dL. he underwent upper EGD that revealed abnormal discolored and friable mucosa and the prepyloric region, biopsy was taken and malignancy is in the differential diagnosis. Colonoscopy also done and showed multiple colon polyps that was resected. Pt was discharged home on protonix BID, will need follow up for biopsy results and need referral to GI as out pt. #5 abnormal cardiac enzymes: Due to demand ischemia. EKG without acute segment changes. 2D echocardiogram revealed ejection fraction of 65%, normal LV size and function, stage I diastolic dysfunction. #6 hypokalemia: Potassium was replaced and corrected per protocol.Serum magnesium was normal. #7 acute traumatic proximal right humeral fracture: Treated with morphine and oxyir for pain control. Upper arm sling was applied. Orthopedic surgery consulted, recommended no surgical repair at this time, continue arm sling for 3 to 4 weeks, follow-up with orthopedic surgery as outpatient. Pt was evaluated by PT, OT and the pt and his son elected to go home with home health, discharged on Rt arm sling, Oxyir PRN for pain, discharged on protonix BID, continued on his previous home meds, plan to follow up with PCP in 1 weeks, follow up the biopsy results and follow up with orthopedic surgery in 3-4 weeks. This note was generated with [employer] dictation software. It may contain incorrect words, spelling, and punctuation that were not noted in checking the note before signing. Patient Problems: Active and Suspected Problems Hypotension (Acute) Lactic acidosis (Acute) Syncope and collapse (Acute) Closed fracture of right proximal humerus (Acute) Anemia (Acute) Hyperglycemia (Acute) - Physical Exam Vitals/I&O's: Vital Signs Temp Pulse Resp BP Pulse Ox 98.0 F 92 18 109/64 99 04/28/20 14:10 04/28/20 14:10 04/28/20 14:10 04/28/20 14:10 04/28/20 14:10 Oxygen Flow Rate (L/min) 2 Oxygen Delivery Method Room Air Weight: 166 lb 3.657 oz Body Mass Index (BMI) 23.3 General: Alert, Oriented x3, Cooperative, No apparent distress HEENT: Atraumatic, PERRLA, EOMI, Normocephalic Oral: Moist Mucosa, No Gingival or Mucosal Lesions/ Ulcerations Neck: Supple, No JVD, Negative Carotid Bruits, Trachea Midline, Thyroid Normal Size and Texture Lungs: Clear to auscultation, No rhonchi, No wheeze, No rales, Diminished Cardiovascular: Regular rate, Regular Rhythm, Normal S1, Normal S2, PMI Normal Abdomen: Bowel Sounds Present, Soft, Non Tender, Non-Distended, No Hepato-splenomegaly Extremities: No clubbing, No cyanosis, No edema Skin: No rashes, No breakdown Lymphatic: No Cervical, Supraclavicular, or Inguinal Adenopathy Neurological: Cranial nerves II-XII grossly intact, Neuro grossly intact Psych/Mental Status: Appropriate, Flat Affect Discharge Activity: Return to Normal Activity Weight Bearing Status: Weight bearing as tolerated Call your doctor if you observe: Fever of 101 or Higher, Shortness of breath, Dizziness, Fainting spells, Chest pain, Increased palpitations (irregular heartbeat), Uncontrolled pain Home Medications: Medications to take at Discharge Benazepril HCl 10 mg PO DAILY 04/24/20 Glimepiride [Amaryl] 2 mg PO DAILY 04/24/20 Metformin HCl [Glucophage Xr] 500 mg PO BID 04/24/20 Pantoprazole Sodium [Protonix] 40 mg PO BID #90 tab 04/28/20 Following Prescriptions Were Given to Patient: Pantoprazole Sodium [Protonix] 40 mg PO BID #90 tab Prescription Printed Other Amb Orders: Gastroenterology Location: None Selected Primary Care Physician: Justus Foreman DO [Primary Care Provider] - Please follow up with your Primary Care Physician in: 1 week. Please Follow Up With: Joe Laurent DO Disposition: Home with Home Health Minutes spent on discharge:: 33 Patient Condition:: Stable Medical Necessity - Tobacco Use Smoking Status: Unknown if ever smoked Tobacco Use: Cigarettes Meaningful Use Info Meaningful Use Diagnoses (Choose all that apply): None applicable Inpatient E&M: [id number] [facility]
== END 2020-04-28 16:31 | disposition home or self-care (01) | DRG 872 ==
LOC: ED 11:57 → ICU 13:33 → PCU 04-25 16:16
PROVIDERS: Surgery; Admitting Provider Student in an Organized Health Care Education/Training Program; Emergency Provider Emergency Medicine; PCP Family Medicine; Visit Provider Hospitalist
PROC: 0DJD8ZZ Inspection of Lower Intestinal Tract, Via Natural or Artificial Opening Endoscopic (ICD-10-PCS; CPT 45378; principal; 2020-04-27 10:25)
DX: A41.9 Sepsis, unspecified organism (principal); E87.2 Acidosis; E87.1 Hypo-osmolality and hyponatremia; I24.8 Other forms of acute ischemic heart disease; S42.211A Unspecified displaced fracture of surgical neck of right humerus, initial encounter for closed fracture; S42.251A Displaced fracture of greater tuberosity of right humerus, initial encounter for closed fracture; E86.0 Dehydration; D12.0 Benign neoplasm of cecum; D12.2 Benign neoplasm of ascending colon; D12.3 Benign neoplasm of transverse colon; D12.4 Benign neoplasm of descending colon; D12.5 Benign neoplasm of sigmoid colon; E11.65 Type 2 diabetes mellitus with hyperglycemia; I10 Essential (primary) hypertension; E78.5 Hyperlipidemia, unspecified; D50.9 Iron deficiency anemia, unspecified; E87.6 Hypokalemia; Z20.822 Contact with and (suspected) exposure to COVID-19; F17.210 Nicotine dependence, cigarettes, uncomplicated; W18.30XA Fall on same level, unspecified, initial encounter; Y93.9 Activity, unspecified; Y92.9 Unspecified place or not applicable; Y99.9 Unspecified external cause status; Z91.19 Patient's noncompliance with other medical treatment and regimen; Z79.84 Long term (current) use of oral hypoglycemic drugs; Z79.899 Other long term (current) drug therapy
CPT/HCPCS: 36415; 70450; 71045; 73030; 73200; 74177; 76377; 80048; 80053; 81001; 82274; 82550; 82728; 82962; 83036; 83540; 83550; 83605; 83735; 83930; 84484; 85014; 85018; 85025; 85610; 85730; 86644; 86850; 86900; 86901; 86920; 87040; 87086; 87088; 87426; 88305; 88312; 88331; 88341; 88342; 93005; 93306; 97110; 97162; 97166; 97535; 97802; 97803; 99285; 99406; J7030; J7040; J7050; J7120; P9016; Q9957; Q9967; A4216; C8929; J1610; J2405

== ENCOUNTER 2020-04-30 02:39 | Emergency (ER) | payer OTHER, SELFPAY ==
[2020-04-27 07:53] VITALS: BMI 23.3
--- NOTE | 2020-04-30 03:11 | ED.DCSUM_ITS ---
History of Present Illness Chief Complaint: CPR Informant: [employer] Narrative: Patient patient is a 64-year-old male with recent hospitalization for syncope, hypotension and anemia presenting via cardiac arrest. Patient was on the toilet when he suddenly passed out. He became pulseless for EMS when they arrived and ACLS protocol was started. ROSC was achieved however patient lost pulses again. Patient had large volume of hematemesis per EMS. Manjinder airway was placed. Patient received a total of 2 mg of epinephrine and 1 amp of bicarb ROSC was achieved a second time however patient lost pulses shortly upon arrival. Past Medical History - Allergies and Home Meds Allergies/Adverse Reactions: Allergies No Known Allergies Allergy (Verified 04/24/20 10:44) Primary Care Physician: Justus Foreman DO [Primary Care Provider] - Past Medical History: - - Hypertension, type 2 diabetes mellitus, anemia Surgical History: no surgical history Lives: With Family Smoking Status: Heavy Smoker (>10/day) Drugs: None - Family History Maternal Family History: Reports: Heart Disease Paternal Family History: Reports: No pertinent history Review of Systems ROS: Unable to Obtain - Patient unresponsive Physical Exam Inital Vital Signs reviewed: Yes - PEA, no blood pressure General: Unkempt, Acute Distress Head: Normocephalic, Atraumatic Eyes: Pale conjunctiva, - - Pupils fixed nonreactive ENT: - - A large amount of maroon blood in the oropharynx as well as food product present Cardiovascular: - - has palpable pulses with chest compressions but is in PEA Respiratory: - - Diminished breath sounds with bagging no spontaneous respirations Abdomen: Soft, Nondistended. Negative for: Pulsatile mass Extremities: No edema, - - No deformity Skin: No Trauma, Pallor Neurological: - - Unresponsive, GCS equals 3, no spontaneous movements Diagnostic/Tx/Re-eval - Medical Decision Making Patient is evaluated immediately upon arrival. Patient had what sounds like a syncopal episode while on the toilet and then large-volume hematemesis. Patient was in PEA for EMS but did achieve ROSC. By the time patient arrived to the ER he again was in PEA. ACLS protocol was followed. Patient continued to have large volumes of hematemesis and a total of 400 cc of dark red blood was suctioned from his oropharynx as well as a large amount of blood that was on him, the ground and the stretcher. Patient was difficult to ventilate secondary to the hematemesis so airway was secured. Initially Dr. Miles tented intubation first with glide scope and then with direct but was unsuccessful seco ndary. Patient was bagged with Ambu bag in between attempts. Intubation then successful on first attempt when performed by myself via direct visualization. See procedure note. After multiple rounds of CPR with PEA patient's family arrived to states they want everything done for him. Trauma blood is ordered from the lab as I suspect his arrest is secondary to massive GI bleed versus aspiration from said GI bleed. Patient then goes into V. fib. He is defibrillated twice with 200 J. He is also given a 300 mg bolus of amiodarone. He then goes back into PEA. Bedside ultrasound performed by myself shows organized cardiac fasciculation but there is no actual pumping. After approximately 45 minutes of downtime and patient continues to be in PEA, family is at the bedside and decision is made to stop resuscitative efforts. Bedside ultrasound now shows no organized cardiac wall movement. Time of was called at 0308. Family is at the bedside. Patient's PCP does not feel comfort able signing the certificate as he has not seen him for quite some time. The on car supervisor will evaluate the patient in the ER. - Critical Care Time Critical care time (excluding procedures): 30-74 minutes - 45, Discussing w/Patient &/or Family/Human Development Professor, Performing Direct Patient Care at Bedside, - - Patient arrives and is a full arrest. Prolonged resuscitation requiring my immediate bedside attention ultimately ended in patient's demise. Multiple conversations with family also performed. Procedures Procedure(s): Intubation. Indication?cardiopulmonary arrest. No premedication required. Intubation performed emergently. 7.5 ET tube passed on first attempt using 4 MAC blade with direct visualization. Bilateral chest rise with bilateral breath sounds and color change on capnography. No sounds appreciated over the epigastric. No immediate complications. ED Disposition - Plan for ED Patient: Disposition: Diagnosis: Cardiopulmonary arrest, GI (gastrointestinal hemorrhage) Referrals: Justus Foreman DO [Primary Care Provider] -
[2020-04-30 03:28] VITALS: TEMP 35.5; BMI 23.4
[2020-04-30 03:29] VITALS: RESP 16
--- NOTE | 2020-04-30 04:50 | ED.RN ---
daughter in law information [phone]
== END 2020-04-30 05:24 ==
PROVIDERS: Emergency Provider Emergency Medicine; PCP Family Medicine
DX: I46.9 Cardiac arrest, cause unspecified (principal); K92.2 Gastrointestinal hemorrhage, unspecified; K92.0 Hematemesis; I49.01 Ventricular fibrillation; E11.9 Type 2 diabetes mellitus without complications; I10 Essential (primary) hypertension; F17.200 Nicotine dependence, unspecified, uncomplicated; Z79.84 Long term (current) use of oral hypoglycemic drugs; Z79.899 Other long term (current) drug therapy
CPT/HCPCS: 31500; 92950; 99281; 99291; J7030; A4216